=== PATIENT | female | born 1955 | race Caucasian/White ===

== ENCOUNTER → 2023-10-29 11:57 | Outpatient (REF) | payer OTHER, SELFPAY ==
[2023-10-29 14:53] LABS: ALT (SGPT) 25 U/L (0-35); AST (SGOT) 39 U/L (14-36); Albumin 4.3 g/dl (3.5-5.0); Alkaline Phosphatase 75 U/L (38-126); Direct Bilirubin 0.4 mg/dl (0.0-0.4); HDL Cholesterol 74 mg/dl; LDL Cholesterol, Calculated 82 mg/dl; Total Bilirubin 0.9 mg/dl (0.2-1.3); Total Cholesterol 178 mg/dl (50-199); Total Protein 7.1 g/dl (6.3-8.2); Triglyceride 114 mg/dl (10-149); Very Low Density Lipoprotein 22 mg/dl (0-30)
[2023-10-30 08:53] LABS: Glycohemoglobin (HgbA1c) 5.8 % (4.0-5.6)
== END ==
LOC: HWLAB 11:57
PROVIDERS: ATTENDING PHYSICIAN Family Medicine
DX: E78.5 Hyperlipidemia, unspecified (principal); I25.2 Old myocardial infarction; I25.10 Atherosclerotic heart disease of native coronary artery without angina pectoris; R73.01 Impaired fasting glucose
CPT/HCPCS: 36415; 80061; 80076; 83036

== ENCOUNTER → 2023-11-16 08:48 | Outpatient (REF) | payer OTHER, SELFPAY | LOC: RCS 08:48 | PROVIDERS: ATTENDING PHYSICIAN Internal Medicine Critical Care Medicine; FAMILY PHYSICIAN Family Medicine | DX: R09.02 Hypoxemia (principal) | CPT/HCPCS: 93306 ==

== ENCOUNTER → 2023-12-09 10:53 | Outpatient (REF) | payer OTHER, SELFPAY | LOC: HWRAD 10:53 | PROVIDERS: ATTENDING PHYSICIAN Family Medicine | DX: E04.1 Nontoxic single thyroid nodule (principal) | CPT/HCPCS: 76536 ==

== ENCOUNTER → 2024-01-03 13:06 | Outpatient (REF) | payer OTHER, SELFPAY | LOC: HWWDC 13:06 | PROVIDERS: ATTENDING PHYSICIAN Family Medicine | DX: Z12.31 Encounter for screening mammogram for malignant neoplasm of breast (principal) | CPT/HCPCS: 77063; 77067 ==

== ENCOUNTER → 2024-01-09 10:46 | Outpatient (REF) | payer OTHER, SELFPAY | LOC: RAD 10:46 | PROVIDERS: ATTENDING PHYSICIAN Family Medicine; REFERRING PHYSICIAN Internal Medicine Interventional Cardiology | DX: I65.23 Occlusion and stenosis of bilateral carotid arteries (principal); R93.6 Abnormal findings on diagnostic imaging of limbs | CPT/HCPCS: 93880; 93922 ==

== ENCOUNTER → 2024-01-21 13:22 | Outpatient (REF) | payer OTHER, SELFPAY | LOC: HWRAD 13:22 | PROVIDERS: ATTENDING PHYSICIAN Internal Medicine Critical Care Medicine; FAMILY PHYSICIAN Family Medicine | DX: R04.2 Hemoptysis (principal); J98.4 Other disorders of lung | CPT/HCPCS: 71250 ==

== ENCOUNTER 2024-05-06 23:25 | Observation (INO) | payer OTHER, SELFPAY ==
[2024-05-06] VITALS (10 sets, daily range): BP systolic 119–168; BP diastolic 73–108; BMI 19.4; BMI 19.1
--- NOTE | 2024-05-06 14:33 | ED.GENMED ---
ED Provider Triage
<Brina Rasmussen PA-C - Last Filed: 05/06/24 20:33>
-
Patient seen by provider in Triage?: Seen in Triage
Attestation: A medical screening examination has been initiated by a qualified medical provider. Based on the assessment performed at this time, it has been determined that an emergent medical condition may exist and the patient has been informed
that further medical evaluation and possible additional diagnostic testing may be needed.
HPI: 69yoF here with SOB x 1 month. Also c/o chest tightness and cough. Hx of COPD on 3-4L and CAD s/p PCI. Heart rate up to 170 with ambulation at PCP's office.
GENERAL: Alert , in no apparent distress
EYE: No visual abnormalities.
NECK: Trachea midline
ENT: No visible abnormalities.
LUNGS: No acute respiratory distress
NEUROLOGICAL: Alert and oriented
SKIN: Skin intact. No visible changes.
MUSCULOSKELETAL: Moving extremities normally
PSYCH: Normal and appropriate interaction.
This is a medical evaluation conducted in person to initiate diagnostic evaluation and provide initial therapeutics. Please see further documentation by the treating clinician.
HR 130 in triage. Cardiac labs, magnesium, TSH, D-dimer, EKG, and CXR ordered.
History of Present Illness
<Brina Rasmussen PA-C - Last Filed: 05/06/24 20:33>
General
Chief Complaint: Breathing Problem
Time Seen by Provider: 05/06/24 16:47
<Aracely Ballard DO - Last Filed: 05/08/24 08:14>
History of Present Illness
History of Present Illness:
69-year-old female with history of severe emphysema on 3 to 4 L of O2 at baseline presenting for increasing dyspnea. Patient reports symptoms have been ongoing for the past few weeks. Reports nonproductive cough, denies fever. Denies any swelling
to her legs. Denies any associated chest pain. Denies abdominal pain or GI symptoms. She reports that when she ambulates, heart rate is elevated. Denies any history of blood clots. Denies additional acute medical complaints.
Past History
<Brina Rasmussen PA-C - Last Filed: 05/06/24 20:33>
Past History
ED Past Medical History: CAD, COPD, HTN and Hypercholesterolemia
ED Past Surgical History: Cardiac
Social History
Tobacco: Former smoker
Alcohol: None
Drug: None
Personal:
Living: with family
Phy Exam
<Aracely Ballard DO - Last Filed: 05/08/24 08:14>
Physical Exam
Physical Exam:
General: Well-appearing, no clinical signs of dehydration, nontoxic and in no acute distress
HEENT: protecting airway
Neck: appears supple
CV: Normal heart rate, regular rhythm, no evidence of cyanosis
Resp: No accessory muscle use, no increased work of breathing, lungs clear to auscultation bilaterally
Abd: Soft and non-distended, no tenderness to palpation
Extremities: No deformities, no swelling, no erythema
Neuro: alert, no focal neurologic deficit
: deferred
Rectal: deferred
Psych: Normal affect
Skin: Intact
Scores
<Aracely Ballard DO - Last Filed: 05/08/24 08:14>
Heart Failure Risk
Heart Failure Risk Score: Not Applicable
Course
<Brina Rasmussen PA-C - Last Filed: 05/06/24 20:33>
Orders/Labs/Results
Orders:
Orders
05/06/24 Breakfast
Sodium, 2 Gram
At Your Request: Full Participation
Does patient need a safe tray?: No
05/06/24 14:37
CR Chest - 2 Views Urgent
Comment:
Reason For Exam: SOB
05/06/24 14:38
Electrocardiogram (*1) Urgent
Reason for Study: Shortness of Breath
EKG- Treatment ONCE
05/06/24 14:52
Complete Blood Count/With Diff Urgent
Comprehensive Metabolic Panel Urgent
D-Dimer Urgent
Free T4 Urgent
Magnesium Urgent
PTT Urgent
Prothrombin Time Urgent
TSH Reflex To Free T4 Urgent
Troponin I Urgent
05/06/24 16:49
CT Chest Pe Study Urgent
Comment:
Reason For Exam: SOB, positive dimer
05/06/24 22:29
Admit/Transfer Patient As Directed
Co-Sign Provider:
Level of Care: Observation services
Assign to:: Telemetry
Physician / Group: Morgan
Diagnosis: Tachycardia
Reason for Telemetry: Arrhythmia
Date to Stop Telemetry: 05/09/24
Time to Stop Telemetry: 11:00
05/06/24 22:30
PRN Pain Medication Management As Directed
May give lesser potent ordered pain med per pt: Yes
preference::
Protocol:: Medication orders for pain may be administered in a
manner that supports deferring to patient preference
when the pt is:
- Requesting an ordered lesser potent pain medication.
Least to most potent pain medications are defined
as: acetaminophen < NSAID < tramadol < opioids
(morphine, oxycodone, hydromorphone).
- Requesting a lesser dose of the same medication IF
ORDERED.
- Requesting a less intrusive route of administration
if both routes are prescribed by the provider (PO <
IV).
05/06/24 22:33
Code Status As Directed
Resuscitation Status: Full Code
05/06/24 23:00
Flush (0.9% Sodium Chloride) [Flush (Nss)] See Dose Instructions IV PER PROTOCOL
05/06/24 23:58
Acetaminophen [Tylenol] 650 mg PO Q4HPRN PRN
Levalbuterol [Xopenex 1.25 mg Inhalant Solution] 1.25 mg INH R Q6HPRN PRN
05/06/24 23:58
CARDIOLOGY CONSULT Routine
Consulting Provider: Casandra Meier
Was physician already notified: No
Reason for consult: Exertional Tachycardia, Dyspnea on Exertion
Consult Notification Routine
Specialty to Notify: Cardiology
Date consulting provider notified: 05/07/24
Time consulting provider notified: 10:47
Notified:: Provider
Consult Notification Routine
Specialty to Notify: Pulmonary
Date consulting provider notified: 05/07/24
Time consulting provider notified: 10:48
Notified:: Provider
PULMONARY CONSULT Routine
Consulting Provider: Homer Gonzalez
Was physician already notified: No
Reason for consult: Exertional Tachycardia, Dyspnea on Exertion
Activity As Directed
Activity Level: Out of Bed- Chair
I&O [Intake/ Output] As Directed
Frequency: q12h
Vital Signs As Directed
Frequency: Per unit guidelines
Weight As Directed
Frequency: Daily
Xopenex Reason for Use As Directed
Reason for ordering Xopenex instead of Albuterol: tachycardia
Oxygen Therapy [O2 Therapy] [RESP] Routine
Titrate/Wean O2 to maintain O2 sat greater than (%): 92
Pulse Ox/cont/shift [RESP] Routine
Quantity: 1
Pulse Ox/exercise [RESP] Routine
Quantity: 1
Ot Eval And Treat Routine
Pt Eval And Treat Routine
Activity Level: Out of Bed-Early Mobility
With Assistance
DX Deep Vein Thrombosis Video Routine
05/07/24 08:00
Budesonide [Pulmicort] 0.5 mg INH R BID
Calcium Carbonate [Oscal Arpit 500] 500 mg PO BID
Ezetimibe [Zetia] 10 mg PO DAILY
Metoprolol Xl [Toprol Xl] 12.5 mg PO DAILY
Montelukast Sodium [Singulair] 10 mg PO DAILY
Roflumilast [Daliresp] 500 mcg PO DAILY
Tiotropium [place] 2.5 Mcg [Spiriva Respimat 2.5 Mcg] 2 puff INH R DAILY
05/07/24 18:00
Enoxaparin Sodium [Lovenox] 30 mg SC QPM
05/07/24 22:00
Aspirin Low Dose EC [Aspir Low (Enteric Coated)] 81 mg PO HS
Atorvastatin [Lipitor] 40 mg PO HS
Clopidogrel Bisulfate [Plavix] 75 mg PO HS
Lactobac/Bifidobac [Visbiome] 1 cap PO HS
doxepin See Dose Instructions PO HS
05/09/24 11:00
DC Protocol for Telemetry ONCE
Abnormal Lab Results
05/06/24
14:52
Absolute Neuts (auto) 7.9 H 10^3/uL
(1.4-6.5)
Absolute Monos (auto) 0.7 H 10^3/uL
(0.1-0.6)
Neutrophils % 76.7 H %
(42.2-75.2)
Lymphocytes % 13.7 L %
(20.5-51.1)
D-Dimer 0.61 H ug/mlFEU
(0.00-0.50)
Glucose 133 H mg/dl
(70-99)
TSH (Reflex) < 0.02 L uIU/ml
(0.47-4.68)
05/06/24 14:52
05/06/24 14:52
Vital Signs
Initial and Last Documented VS:
Initial Vital Signs
Temp Pulse Resp BP Pulse Ox
98.6 F 131 22 148/108 98
05/06/24 14:29 05/06/24 14:29 05/06/24 14:29 05/06/24 14:29 05/06/24 14:29
Last Documented Vital Signs
Temp Pulse Resp BP Pulse Ox
97.9 F 73 20 135/74 100
05/08/24 08:05 05/08/24 08:05 05/08/24 08:05 05/08/24 08:05 05/08/24 08:05
<Aracely Ballard, - Last Filed: 05/08/24 08:14>
Orders/Labs/Results
Orders:
Orders
05/06/24 Breakfast
Sodium, 2 Gram
At Your Request: Full Participation
Does patient need a safe tray?: No
05/06/24 14:37
CR Chest - 2 Views Urgent
Comment:
Reason For Exam: SOB
05/06/24 14:38
Electrocardiogram (*1) Urgent
Reason for Study: Shortness of Breath
EKG- Treatment ONCE
05/06/24 14:52
Complete Blood Count/With Diff Urgent
Comprehensive Metabolic Panel Urgent
D-Dimer Urgent
Free T4 Urgent
Magnesium Urgent
PTT Urgent
Prothrombin Time Urgent
TSH Reflex To Free T4 Urgent
Troponin I Urgent
05/06/24 16:49
CT Chest Pe Study Urgent
Comment:
Reason For Exam: SOB, positive dimer
05/06/24 22:29
Admit/Transfer Patient As Directed
Co-Sign Provider:
Level of Care: Observation services
Assign to:: Telemetry
Physician / Group: Morgan
Diagnosis: Tachycardia
Reason for Telemetry: Arrhythmia
Date to Stop Telemetry: 05/09/24
Time to Stop Telemetry: 11:00
05/06/24 22:30
PRN Pain Medication Management As Directed
May give lesser potent ordered pain med per pt: Yes
preference::
Protocol:: Medication orders for pain may be administered in a
manner that supports deferring to patient preference
when the pt is:
- Requesting an ordered lesser potent pain medication.
Least to most potent pain medications are defined
as: acetaminophen < NSAID < tramadol < opioids
(morphine, oxycodone, hydromorphone).
- Requesting a lesser dose of the same medication IF
ORDERED.
- Requesting a less intrusive route of administration
if both routes are prescribed by the provider (PO <
IV).
05/06/24 22:33
Code Status As Directed
Resuscitation Status: Full Code
05/06/24 23:00
Flush (0.9% Sodium Chloride) [Flush (Nss)] See Dose Instructions IV PER PROTOCOL
05/06/24 23:58
Acetaminophen [Tylenol] 650 mg PO Q4HPRN PRN
Levalbuterol [Xopenex 1.25 mg Inhalant Solution] 1.25 mg INH R Q6HPRN PRN
05/06/24 23:58
CARDIOLOGY CONSULT Routine
Consulting Provider: Casandra Meier
Was physician already notified: No
Reason for consult: Exertional Tachycardia, Dyspnea on Exertion
Consult Notification Routine
Specialty to Notify: Cardiology
Date consulting provider notified: 05/07/24
Time consulting provider notified: 10:47
Notified:: Provider
Consult Notification Routine
Specialty to Notify: Pulmonary
Date consulting provider notified: 05/07/24
Time consulting provider notified: 10:48
Notified:: Provider
PULMONARY CONSULT Routine
Consulting Provider: Homer Gonzalez
Was physician already notified: No
Reason for consult: Exertional Tachycardia, Dyspnea on Exertion
Activity As Directed
Activity Level: Out of Bed- Chair
I&O [Intake/ Output] As Directed
Frequency: q12h
Vital Signs As Directed
Frequency: Per unit guidelines
Weight As Directed
Frequency: Daily
Xopenex Reason for Use As Directed
Reason for ordering Xopenex instead of Albuterol: tachycardia
Oxygen Therapy [O2 Therapy] [RESP] Routine
Titrate/Wean O2 to maintain O2 sat greater than (%): 92
Pulse Ox/cont/shift [RESP] Routine
Quantity: 1
Pulse Ox/exercise [RESP] Routine
Quantity: 1
Ot Eval And Treat Routine
Pt Eval And Treat Routine
Activity Level: Out of Bed-Early Mobility
With Assistance
DX Deep Vein Thrombosis Video Routine
05/07/24 08:00
Budesonide [Pulmicort] 0.5 mg INH R BID
Calcium Carbonate [Oscal Arpit 500] 500 mg PO BID
Ezetimibe [Zetia] 10 mg PO DAILY
Metoprolol Xl [Toprol Xl] 12.5 mg PO DAILY
Montelukast Sodium [Singulair] 10 mg PO DAILY
Roflumilast [Daliresp] 500 mcg PO DAILY
Tiotropium [place] 2.5 Mcg [Spiriva Respimat 2.5 Mcg] 2 puff INH R DAILY
05/07/24 18:00
Enoxaparin Sodium [Lovenox] 30 mg SC QPM
05/07/24 22:00
Aspirin Low Dose EC [Aspir Low (Enteric Coated)] 81 mg PO HS
Atorvastatin [Lipitor] 40 mg PO HS
Clopidogrel Bisulfate [Plavix] 75 mg PO HS
Lactobac/Bifidobac [Visbiome] 1 cap PO HS
doxepin See Dose Instructions PO HS
05/09/24 11:00
DC Protocol for Telemetry ONCE
Abnormal Lab Results
05/06/24
14:52
Absolute Neuts (auto) 7.9 H 10^3/uL
(1.4-6.5)
Absolute Monos (auto) 0.7 H 10^3/uL
(0.1-0.6)
Neutrophils % 76.7 H %
(42.2-75.2)
Lymphocytes % 13.7 L %
(20.5-51.1)
D-Dimer 0.61 H ug/mlFEU
(0.00-0.50)
Glucose 133 H mg/dl
(70-99)
TSH (Reflex) < 0.02 L uIU/ml
(0.47-4.68)
05/06/24 14:52
05/06/24 14:52
Vital Signs
Initial and Last Documented VS:
Initial Vital Signs
Temp Pulse Resp BP Pulse Ox
98.6 F 131 22 148/108 98
05/06/24 14:29 05/06/24 14:29 05/06/24 14:29 05/06/24 14:29 05/06/24 14:29
Last Documented Vital Signs
Temp Pulse Resp BP Pulse Ox
97.9 F 73 20 135/74 100
05/08/24 08:05 05/08/24 08:05 05/08/24 08:05 05/08/24 08:05 05/08/24 08:05
<Aracely aBllard, DO - Last Filed: 05/08/24 08:14>
MDM/Problems Addressed
MDM/Problems Addressed:
69-year-old female with history of severe emphysema presenting for increased shortness of breath and concern for elevated heart rate on ambulation. Vital signs on arrival significant for mild tachycardia.
On exam patient is well-appearing, resting comfortably, no increased work of breathing. Lungs clear to auscultation, no focal abnormal lung sounds, no wheezing with lower suspicion for COPD exacerbation or infectious component such as pneumonia.
No crackles, no rales, no lower extremity edema with lower suspicion for CHF.. Patient without chest pain, EKG obtained, nonischemic with lower suspicion for ACS. Patient had screening laboratory analysis completed prior to my assessment,
relatively unremarkable with the exception of elevated dimer. PE is a consideration. For this reason we will obtain CT chest for rule out
21:15 - CT without PE, however patient ambulated and heart rate went up to the 140s and patient became very dyspneic. She notes that she has been this way essentially for the past month, however worsened in the past few days, difficulty getting
around her house. Given this dyspnea on exertion and tachycardia with exertion, feel patient warrants admission for cardiac evaluation and possible stress testing.
<Aracely Ballard DO - Last Filed: 05/08/24 08:14>
*EKG
Interpreted by ED Provider?: Yes
EKG Intrepretation Date: 05/06/24
EKG Intrepretation Time: 17:23
Interpretation: normal
Comparison EKG: no changes (02/26/23)
Heart Rate: 114
Rate: tachycardiac
Rhythm: sinus
[place]: normal axis
Interval: normal interval
QRS Pattern: normal QRS
Ischemia: no ischemia
*Critical Care Note
Total Time (30-74mins, 75-104mins- exclusive of procedures): Not Applicable
ED Attending Note
<Brina Rasmussen PA-C - Last Filed: 05/06/24 20:33>
-
Portions of this chart may have been created with voice recognition software.� Occasional wrong word or��sound alike� substitutions may have occurred due to the inherent limitations of voice recognition software.
Discharge Plan
Departure
Patient Disposition: Admit
Date of Disposition: 05/06/24
Time of Disposition: 22:00
Presentation/result/management discussed w/ accepting MD/DO: Hospitalist
Patient with high blood pressure during this ER visit?: No
Condition: Fair
Discharge Problem:
HEBERT (dyspnea on exertion), Tachycardia
Interventions
Interventions:
*Risk Screen - Suicide Last Done: 05/07/24 00:04
*General Assessment Last Done: 05/06/24 14:29
*Neglect/Abuse Screening Last Done: 05/06/24 14:34
ED- Fall Risk Assessment Last Done: 05/06/24 16:49
*ED COVID-19 Vaccine History Last Done: 05/06/24 14:29
*Nursing Disposition Last Done: 05/06/24 23:31
ED- Cardiac Assessment Last Done: 05/06/24 16:49
ED- Pulmonary Assessment Last Done: 05/06/24 16:49
Discharge Date and Time
Discharge Date/Time: 05/06/24 23:31
[2024-05-06 15:01] LABS: % Eosinophils 1.4 % (0-6); % Immature Granulocytes 0.3 % (0-0.5); % Lymphocytes 13.7 % (20.5-51.1); % Monocytes 6.9 % (1.7-9.3); % Neutrophils 76.7 % (42.2-75.2); Absolute Basophils 0.1 10^3/uL (0-0.2); Absolute Eosinophils 0.1 10^3/uL (0-0.7); Absolute Lymphocytes 1.4 10^3/uL (1.2-3.4); Absolute Monocytes 0.7 10^3/uL (0.1-0.6); Absolute Neutrophils 7.9 10^3/uL (1.4-6.5); Hematocrit 40.4 % (37.0-47.0); Hemoglobin 13.6 g/dL (12.0-16.0); Mean Corp Hgb Conc. 33.7 g/dL (33.0-37.0); Mean Corpuscular Hgb 30.1 pg (27.0-31.0); Mean Corpuscular Volume 89.4 fL (81.0-99.0); Mean Platelet Volume 9.6 fL (7.4-10.4); Nucleated Red Blood Cells % 0 %; Platelet Count 329 10^3/uL (130-400); Red Blood Cell Count 4.52 10^6/uL (4.20-5.40); Red Cell Dist. Width 12.4 % (11.5-14.5); White Blood Cell Count 10.3 10^3/uL (4.8-10.8)
[2024-05-06 15:18] LABS: ALT (SGPT) 26 U/L (0-35); AST (SGOT) 32 U/L (14-36); Albumin 4.5 g/dl (3.5-5.0); Alkaline Phosphatase 70 U/L (38-126); Blood Urea Nitrogen 14 mg/dl (7-17); Carbon Dioxide 28 mmol/L (22-30); Chloride 98 mmol/L (98-107); Glucose 133 mg/dl (70-99); Potassium 4.1 mmol/L (3.5-5.1); Sodium 135 mmol/L (135-145); Total Bilirubin 0.3 mg/dl (0.2-1.3); eGFR > 60.00
[2024-05-06 15:28] LABS: Troponin I < 0.012 ng/ml
[2024-05-06 15:30] LABS: PT 12.7 Sec (11.4-14.6)
[2024-05-06 15:53] LABS: TSH Reflex To Free T4 < 0.02 uIU/ml (0.47-4.68)
[2024-05-06 16:03] LABS: D-Dimer 0.61 ug/mlFEU (0.00-0.50)
[2024-05-06 16:23] LABS: Free T4 1.09 ng/dl (0.78-2.19)
--- NOTE | 2024-05-06 21:05 | EDRN ---
Pt. ambulated around nursing station w/ ECT on 3LNC, Pulse ox. maintained above 94%; however, pt. w/ pursed lip, labored breathing w/ ambulation, and her HR increased to 140 w/ ambulation.
--- NOTE | 2024-05-06 22:29 | HPS.HSE ---
Addendum entered and electronically signed by Jaylon Mora DO 05/06/24 23:49:
Patient seen and examined independently. Agree with findings and plan as set forth by Gracie Claros PA-C.
Patient is a 69y F with PMH significant for COPD, chronic hypoxemic respiratory failure and ASCVD who presents to ED complaining of HEBERT and rapid heart rate with activity. Patient typically wears 3 lpm of O2 at rest and increases this to 4 lpm
with activity. For the past several weeks she has noted worsening shortness of breath with exertion. She has been monitoring her SpO2 - which she notes decreases in the low 90s / high 80s with activity. She has incidentally noted on SpO2
monitoring that her pulse has also increased with activity - going as high as 170 bpm at home. She has no symptoms at rest. No cough, fevers / chills, chest pain, palpitations, etc.
Ass:
Exertional Dyspnea
Exertional Tachycardia
COPD
Chronic Hypoxemic Respiratory Failure
COPD without Acute Exacerbation
ASCVD
Ischemic Cardiomyopathy
Benign Hypertension
Plan:
Observe overnight for further evaluation and treatment.
Patient with significant tachyarrhythmia with any activity / exertion / etc.
Evaluation in the ED including CTA chest, EKG, labs, etc has been unremarkable.
Monitor on tele overnight.
Echo done in October with LVEF 45-50%, multiple areas of hypokinesis and trivial pericardial effusion.
Cardiology and Pulmonary evaluations for additional recommendations.
Titrate O2 as needed.
Continue usual home med regimen.
Original Note:
Family Physician
-
Family Physician: Keily Naidu
Chief Complaint
-
Exertional Tachycardia and Dyspnea on Exertion
History of Present Illness
Patient is a 69 y/o female past medical history of chronic hypoxia, COPD, CAD, and ICM who presents with elevated heart rate and dyspnea on exertion. Patient reports over the last six weeks she has been having increasing dyspnea on exertion. She
notes on her home pulse ox her oxygen level drop to the low 90s, sometimes the upper 80s, and her heart rate becomes significantly elevated as high as 170s. She report she is on 3L oxygen at rest, but increases it to 4L with activity. She denies
chest pain, or lower extremity edema.
Medical History
Past Medical History
Past Medical History: Reports Other
Additional Past Medical History:
Chronic Hypoxic Respiratory Failure
COPD
Coronary Artery Disease s/p Stent
Ischemic Cardiomyopathy
Essential Hypertension
Hyperlipidemia
Osteoporosis
Past Surgical History: Reports None
Additional Past Surgical History:
Cardiac Stent
Tubal Ligation
Social History
Tobacco: Former Smoker (Quit in 2015)
Family History
Family History: Not pertinent
Allergies / Home Medications
Allergies reflects when Allergies were last updated in [facility].
Home Medications with original date entered in [facility]
Allergy/Medication List:
Weight-Last 4 Days
05/04/24 05/05/24 05/06/24 05/07/24
06:59 06:59 06:59 06:59
Actual Weight 120 lb 5.958 oz
Review of Systems
-
A 12 point ROS was completed and negative except as noted: Yes
Constitutional: Denies Fever or Chills
Respiratory: Reports Trouble Breathing; Denies Cough
Cardiac: Denies Chest Pain or Palpitations
Neurological: Denies Dizzy
Physical Exam
Vital Signs
Vital Signs
Temp Pulse Resp BP Pulse Ox
98.6 F 102 22 153/85 99
05/06/24 14:29 05/06/24 21:00 05/06/24 14:29 05/06/24 20:00 05/06/24 21:00
Physical Exam
General: Comfortable and Conversant
HEENT: Anicteric, Moist mucous membranes and Oxygen (Nasal Cannula)
Respiratory: Non Labored Respirations and Decreased Breath Sounds
Cardiac: S1/S2, Regular Rhythm and Other (Heart rate consistently in the upper 80s to low 90s during my evaluation while patient was at rest on stretcher); No Tachycardia
GI: Soft and Non Tender
Musculoskeletal: No Clubbing, No Cyanosis and No Edema
Skin: Warm and Dry
Neuro: Awake, Alert, Oriented and Nonfocal/grossly intact
Psych: Calm
Laboratory Results
-
05/06/24 14:52
05/06/24 14:52
Laboratory Results
PT 12.7 Sec (11.4-14.6) 05/06/24 14:52
INR 0.90 05/06/24 14:52
APTT 30.0 Sec (23.4-35.0) 05/06/24 14:52
Total Bilirubin 0.3 mg/dl (0.2-1.3) 05/06/24 14:52
AST 32 U/L (14-36) 05/06/24 14:52
ALT 26 U/L (0-35) 05/06/24 14:52
Alkaline Phosphatase 70 U/L (38-126) 05/06/24 14:52
Troponin I < 0.012 ng/ml 05/06/24 14:52
Data Reviewed
-
Lab Data: Labs Reviewed by me
Impression/Plan
-
Exertional Tachycardia / Dyspnea on Exertion
-Consult Pulmonary and Cardiology
-Check ambulatory pulse ox - Consider up-titrating oxygen with activity
-Defer further work-up to consultants
Chronic Hypoxic Respiratory Failure
-Continue supplemental oxygen via nasal cannula
COPD, no acute exacerbation
-Continue Anoro Ellipta, budesonide and levalbuterol
-Continue montelukast
-Patient maintained on roflumilast as outpatient
Coronary Artery Disease s/p Stent
-Continue aspirin and Plavix
Ischemic Cardiomyopathy
-Echo October 2023: Normal left ventricular size and wall thickness. Mildly reduced to low normal left ventricular systolic function. Apical hypokinesis, basal hypokinesis. LV ejection fraction is 45-50%.
-Monitor Is&Os and Daily Weights
Essential Hypertension
-Continue metoprolol
Hyperlipidemia
-Continue atorvastatin and Zetia
DVT proph: Lovenox
Code Status: Full Code
[2024-05-07] VITALS (8 sets, daily range): BP systolic 126–154; BP diastolic 74–98; PULSE 86–100; O2SAT 97–98; BMI 18.4
[2024-05-07] MEDS: LOW STRENGTH ASPIRIN 81 MG PO (00:27)
[2024-05-07] MEDS: PLAVIX 75 MG PO ×2 (00:27→21:59)
[2024-05-07] MEDS: LIPITOR 40 MG PO ×2 (00:27→21:59)
--- NOTE | 2024-05-07 00:34 | PTCARENOTE ---
Pt received from ER [id number] able to make her needs know.Denies pain. Pt on oxygen at 4litres. Pt oriented to room & maya salgado in reach.Plan of care continued.
[2024-05-07] MEDS: SPIRIVA RESPIMAT 2.5 MCG 2 PUFF INH (08:09)
[2024-05-07] MEDS: STRIVERDI RESPIMAT 2 PUFF INH (08:09)
[2024-05-07] MEDS: PULMICORT 0.5 MG INH ×2 (08:09→19:23)
[2024-05-07] MEDS: OSCAL CAL 500 500 MG PO ×2 (08:43→21:59)
[2024-05-07] MEDS: SINGULAIR 10 MG PO (08:44)
[2024-05-07] MEDS: ZETIA 10 MG PO (08:44)
[2024-05-07] MEDS: DALIRESP 500 MCG PO (08:44)
[2024-05-07] MEDS: TOPROL XL 12.5 MG PO (08:44)
--- NOTE | 2024-05-07 10:23 | CON.PUL ---
Consultation
Consultation Request
Date/Time Consultation Requested: 05/07/2024-8 AM
Date/Time Consultation Performed: 05/07/2024-8:30 AM
Requesting Provider: Hospitalist
Performing Provider: Dr. Underwood
Reason for Consultation: COPD exacerbation
Medical History
-
Chief Complaint: Shortness of breath
History of Present Illness:
69-year-old female patient who is a former smoker with underlying oxygen dependent COPD followed by Dr. Green as well as CAD, ischemic cardiomyopathy and hypertension presented with increasing shortness of breath, rapid heart rate and some chest
tightness-pulmonary consulted for shortness of breath/COPD 05/07/2024. Patient feels somewhat improved overnight on oxygen and other therapies. Patient states that over the last several weeks she has had progressive shortness of breath. She was
not sure whether it was the heart or the lungs. She did have increased dyspnea on exertion and some mild chest tightness but no chest congestion, fevers, chills, productive cough, hemoptysis, abdominal pain, reflux or increased lower extremity
swelling.
Past Medical History
Past Medical History: None (COPD-oxygen dependent. CAD/stent. Ischemic cardiomyopathy. Hypertension. Hyperlipidemia. Osteoporosis. Tubal ligation.)
Social History
Tobacco: Former Smoker ([id number] quit November 25, 2015)
Living: With Family
Occupational Exposures: No known asbestos exposure
Environmental Exposures: No known tuberculosis exposure
Family History
Family History: Reviewed & Not Pertinent and Other (Father-COPD and lung cancer-smoker. Mother-osteoporosis, hypertension and CVA.)
Allergies / Home Medications
Allergies
Allergy/AdvReac Type Severity Reaction Status Date / Time
No Known Allergies Allergy Verified 05/06/24 14:33
Home Medications
�Medication �Instructions �Recorded �Confirmed �Last Taken �Type
calcium carbonate 600 mg PO BID Supplement 04/25/17 05/06/24 05/06/24 History
clopidogrel 75 mg tablet 75 mg PO HS Blood clot 04/25/17 05/06/24 05/05/24 History
prevention/tx
aspirin 81 mg tablet,delayed 81 mg PO HS Blood clot 10/12/20 05/06/24 05/05/24 History
release prevention/tx
atorvastatin 40 mg tablet 40 mg PO HS High cholesterol 10/12/20 05/06/24 05/05/24 History
metoprolol succinate 25 mg 12.5 mg PO DAILY Blood pressure 10/12/20 05/06/24 05/06/24 History
tablet,extended release 24 hr
montelukast 10 mg tablet 10 mg PO DAILY Lung/breathing 10/12/20 05/06/24 05/06/24 History
issues
ezetimibe 10 mg tablet 10 mg PO DAILY High cholesterol 06/22/22 05/06/24 05/06/24 History
levalbuterol tartrate 45 2 puff inhalation R Q4HPRN PRN 06/22/22 05/06/24 Unknown History
mcg/actuation aerosol inhaler sob/wheezing
Lactobac no.2-Bifidobac no.1-S. 1 cap PO HS 05/06/24 05/06/24 05/05/24 History
thermo 112.5 billion cell capsule
(Visbiome)
budesonide 0.5 mg/2 mL suspension 0.5 mg inhalation R BID 05/06/24 05/06/24 05/06/24 History
for nebulization
doxepin 3 mg tablet 3 mg PO HS 05/06/24 05/06/24 05/05/24 History
ibandronate 150 mg tablet 150 mg PO QMONTH 05/06/24 05/06/24 04/18/24 History
roflumilast 500 mcg tablet 500 mcg PO DAILY 05/06/24 05/06/24 05/06/24 History
therapeutic multivitamin 1 tab PO HS 05/06/24 05/06/24 05/05/24 History
umeclidinium 62.5 mcg-vilanterol 1 inh inhalation R DAILY@1200 05/06/24 05/06/24 05/05/24 History
25 mcg/actuation powdr for
inhalation (Anoro Ellipta)
Review of Systems
-
Unable to Obtain full review of systems at this time due to: Other (Per HPI)
Vitals / Labs / Diagnostic Testing
Vital Signs
Temp Pulse Resp BP Pulse Ox
97.6 F 101 16 154/82 100
05/07/24 07:57 05/07/24 08:44 05/07/24 08:18 05/07/24 08:44 05/07/24 08:18
Lab Data
05/06/24 14:52
05/06/24 14:52
Laboratory Results
05/06/24
14:52
PT 12.7
INR 0.90
APTT 30.0
Diagnostic Testing:
Physical Exam
-
Exam:
Well-nourished and well-developed in no apparent distress
HEENT-atraumatic, normocephalic, mild temporal wasting
Neck-supple, no JVD, no bruit
Heart-regular rate and rhythm-no murmurs, rubs or gallops
Chest with diminished breath sounds, prolonged expiratory time, mild barrel chested, forced mid to end expiratory wheezes and no crackles
Back without tenderness
Abdomen-soft, nontender, nondistended, no hepatosplenomegaly
Extremities-no cyanosis, clubbing, edema and good peripheral pulses
Integument-intact, no rashes, lesions or ecchymosis
Neurology-alert and oriented, nonfocal motor and sensory exam
Assessment
-
69-year-old female patient who is a former smoker with underlying oxygen dependent COPD followed by Dr. Green as well as CAD, ischemic cardiomyopathy and hypertension presented with increasing shortness of breath, rapid heart rate and some chest
tightness-pulmonary consulted for shortness of breath/COPD 05/07/2024.
COPD-Gold stage IV with acute exacerbation
Exertional tachycardia/dyspnea
Elevated D-dimer
Mild hyperglycemia
Conditions present prior to admission:
PSUX-tfp-hlgsn-oxygen dependent-followed by Dr. Green maintained on budesonide nebulizers, Anoro, and oxygen 2-3 L at rest, 4 L with exertion
Severe diffusing deficit-DLCO 17%
Eosinophilia
Pulmonary nodule
History of hemoptysis
Pulmonary hypertension
Psoriasis
CAD/stent.
Ischemic cardiomyopathy.
Hypertension.
Hyperlipidemia.
Osteoporosis.
Tubal ligation.
Plan
Respiratory decompensation likely a combination of advancing severe end-stage lung disease with possible mild exacerbation in addition to underlying ischemic cardiomyopathy
Supplement oxygen as needed
Patient has home oxygen-2 to 3 L at rest and 4 L with exertion-might require increased
Budesonide nebulizers continue
Spiriva continues
Albuterol as needed
Singulair and Daliresp continue
Cardiology evaluation
Monitor tachycardia
If patient euvolemic then a trial of steroids may be in order
Monitor blood sugar
Insulin supplementation as needed
DVT prophylaxis-on Lovenox
Nutrition
Early mobilization
Patient was last seen by Dr. Green 03/03/2024 and has an appointment 05/29/2024 at 2:30 PM
The patient was on Trelegy or Breztri, however, it was not covered and now she is on Anoro and budesonide nebulizers, macrolides were also held
Conversations with and pulmonary-Dr. Levon Wiseman as well as lung transplant correspondence-Dr. Son
Diagnostic data:
Chest x-ray 05/06/2024-stable hyperinflated COPD changes but no acute pulmonary process
CT chest 05/06/2024-no filling defects to indicate pulmonary embolism, severe emphysematous lung changes, no suspicious pulmonary masses, no evidence for pneumonia
CT chest 01/21/24: 3 mm left upper lobe nodule, severe emphysema.� Dense coronary calcifications.� There is stable thickening in the right major fissure.� Scarring in the left lower lobe
CXR 03/29/23: no acute findings
CT chest 01/22/23: severe emphysema. thickening along the right fissure noted, stable. Prior opacity has resolved. Mild interstitial changes. left lower lobe groundglass abnormality 11 mm, decreased to [address] chest 10/08/22: new 1.3 cm nodule right lower lobe image #44,patchy mild infiltrate per my review right lower lobe superior segment left upper lobe image #36. Nodular thickening along the fissure right upper lobe image #20. Nodular
PFT 05/29/23 ([place]):FVC 2.22/77%, FEV1 0.82/36%, ratio 37. DLCO 17%, TLC 126%, RV 208%.
[place] 01/31/23: FVC 1.84/54%, FEV1 0.79/30%, ratio 43. FVC has worsened when compared to prior study
[place] 09/11/22: FVC 2.25/66%, FEV1 0.93/36%, ratio 42. FVC has improved, FEV1 stable
PFT 05/15/22: FVC 3.16/95%, FEV1 1.04/41%, ratio 34. TLC 5.37/103%, DLCO 3.24/14%. When compared to one year ago, this is stable
6MWT 10/23/23: ambulated 3 minutes on room air, 88%, dyspnea scale 5/10, heart rate 128.� Required 1 L, walked additional 2 minutes, saturation 91%, heart rate 128, dyspnea scale 6/10, at the stop because of shortness of breath
Echo 11/16/23:EF 45%, normal RV size and function, mild aortic stenosis, trivial pericardial effusion.� Stable
Echo 05/15/23: EF 40%, normal RV size and function, PA pressure 39. Mild 1.59 cm
Echo 11/14/21: EF 45%, normal RV size and function, mild pulmonary hypertension PASP 40. Stable
Echo 10/10/20: EF 45%, nl RVF, PASP 43
Data Reviewed
-
PFT: Report reviewed by me
EKG: Report reviewed by me
Radiology: Image personally visualized and interpreted and Report reviewed by me
CT Scan: Image personally visualized and interpreted and Report reviewed by me
Medical Tests (Nuc Med, Echo etc): Report reviewed by me
Labs: Labs reviewed by me
Old Records: Reviewed
Total Time Spent with Patient (in minutes): 65
--- NOTE | 2024-05-07 10:27 | W.PN.HOSP.TC ---
Today's Communication/Plan
-
see outlined plan, will follow BNP and Echo results
Assessment / Plan
Assessment / Plan
Assessment:
Exertional Tachycardia/Dyspnea on Exertion
- multifactorial from deconditioning, COPD, hx of CAD
- TSH low, FT4 normal
- check Echo, BNP
- CT-PE negative, CXR negative for acute pathology. Shows stable pattern of advanced COPD.
- no sign of bleeding, Hb stable
- follow Cards/Pulm recs
Chronic Hypoxic Respiratory Failure
- Continue supplemental oxygen via nasal cannula
- after workup/diagnostics, will walk and consider up-titrating home O2 usage
COPD, no acute exacerbation
- Continue Anoro Ellipta, budesonide and levalbuterol
- Continue montelukast
- Patient maintained on roflumilast as outpatient
Coronary Artery Disease s/p Stent
- Continue aspirin and Plavix, statin
Ischemic Cardiomyopathy
- Echo October 2023: Normal left ventricular size and wall thickness. Mildly reduced to low normal left ventricular systolic function. Apical hypokinesis, basal hypokinesis. LV ejection fraction is 45-50%.
- Monitor Is&Os and Daily Weights
Essential Hypertension
- Continue metoprolol
Hyperlipidemia
- Continue atorvastatin and Zetia
DVT proph: Lovenox
Code Status: Full Code
Anticipated Discharge: > 48 hours
Subjective/Interval History
-
Date of Service: May 07, 2024
reports SOB, palpitations with exertion
no fever/chills, no bleeding
on 3L resting, 4L exertion at baseline
Objective Data
-
Vital Signs:
Vital Signs
Temp Pulse Resp BP Pulse Ox
97.6 F 101 16 154/82 100
05/07/24 07:57 05/07/24 08:44 05/07/24 08:18 05/07/24 08:44 05/07/24 08:18
I&O
05/06/24 05/07/24 05/08/24
06:59 06:59 06:59
Intake Total 480 / 480
Balance 480 / 480
Physical Exam
-
General: Appears Chronically Ill
HEENT: Normocephalic and Atraumatic
Respiratory: Decreased Breath Sounds; Negative Wheezes
Cardiac: Regular Rhythm, S1/S2 and Tachycardic
GI: Soft
Genito-urinary: No Costovertebral Tender
Musculoskeletal: No Edema
Neuro: AO x 3
Hematologic / Lymphatic: No Lymphadenopathy
Psych: Calm
Data Reviewed
-
Total Time Spent with Patient (in minutes): 44
Labs: Labs Reviewed by me
--- NOTE | 2024-05-07 11:11 | CON.CAR ---
Addendum entered and electronically signed by Brayden Argueta MD 05/07/24 16:22:
I saw and examined the patient.
The [employer]'s note was reviewed and I agree with the note.
Comment:
GEN: No distress, awake, Ox3
HEENT: supple, anicteric, mmm
LUNGS: bilatb wheeze
CV: Reg, S1/S2, 1/6 syst LSB, no gallop
ABD: soft, BS+, NT/ND
EXT: No edema
NEURO: Gross non-focal
SKIN: No rash
Plan:
She has a past medical history of advanced end-stage COPD/emphysema, on chronic home oxygen, coronary status post remote WA/LAD stent with small occluded RCA, ischemic cardiomyopathy with EF of 45 to 50%. She presents with progressive shortness of
breath. She states that over the past several months her baseline dyspnea on home oxygen has slowly worsened. She has noticed some increased heart rate with activity. She denies any chest pains or chest tightness. She denies any orthopnea, PND,
or edema. She has no fevers or chills. She has no bleeding.
Will check echocardiogram. proBNP is normal at 298. Cardiac troponin normal.
EKG with sinus rhythm with nonspecific T wave abnormalities. This is unchanged.
With a normal proBNP I have a low clinical suspicion that this is a cardiac etiology for shortness of breath.
If echocardiogram overall unremarkable with normal pulmonary pressures I would not pursue further cardiac evaluation at this time.
Could consider outpatient Lexiscan nuclear stress test.
Continue medical therapy for coronary disease. Continue aspirin, metoprolol, atorvastatin, Plavix, and Zetia.
Original Note:
Consultation
Consultation Request
Date/Time Consultation Performed: 05/07/24
Requesting Provider: Dr. Fenton
Performing Provider: Jennyfer Barriga PA-C for Dr. Argueta
Reason for Consultation: HEBERT
Medical History
-
Chief Complaint: HEBERT
History of Present Illness:
Patient is a 69-year-old female with past medical history of CAD with remote WA resulting in LAD stent and chronically occluded small dominant RCA, ischemic cardiomyopathy with recovered EF 45 to 50% by most recent echocardiogram, hyperlipidemia,
COPD/emphysema on chronic home O2, pulmonary nodule, former smoker. She has followed by pulmonary, Dr. Green and has reportedly undergone evaluation for lung transplant at [facility] -as of [facility] correspondence 11/12/2023 patient
was deemed appropriate transplant candidate however were evaluating cardiac/rehab potential. She reports over the last month or so she has noted worsening dyspnea on exertion with any activity. Also notes elevated heart rates with activity, but
not palpitations or abnormal heartbeats. She denies chest pain. She denies weight gain, lower extremity edema, abdominal bloating, worsened orthopnea. Cardiology consulted for evaluation
PMH:
CAD with remote WA resulting in LAD PCI, residual chronically occluded small dominant RCA
Ischemic cardiomyopathy with recovered EF 45 to 50% by most recent echocardiogram
Hyperlipidemia
Severe COPD/emphysema on chronic home O2
Pulmonary nodule
Former smoker
Past Medical History
Past Medical History: Other (in HPI)
Social History
Tobacco: Former Smoker
Personal:
Living: With Family
Family History
Family History: Hypertension
Allergies / Home Medications
Allergy/AdvReac Type Severity Reaction Status Date / Time
No Known Allergies Allergy Verified 05/06/24 14:33
�Medication �Instructions �Recorded �Confirmed �Type
calcium carbonate 600 mg PO BID Supplement 04/25/17 05/06/24 History
clopidogrel 75 mg tablet 75 mg PO HS Blood clot 04/25/17 05/06/24 History
prevention/tx
aspirin 81 mg tablet,delayed 81 mg PO HS Blood clot 10/12/20 05/06/24 History
release prevention/tx
atorvastatin 40 mg tablet 40 mg PO HS High cholesterol 10/12/20 05/06/24 History
metoprolol succinate 25 mg 12.5 mg PO DAILY Blood pressure 10/12/20 05/06/24 History
tablet,extended release 24 hr
montelukast 10 mg tablet 10 mg PO DAILY Lung/breathing 10/12/20 05/06/24 History
issues
ezetimibe 10 mg tablet 10 mg PO DAILY High cholesterol 06/22/22 05/06/24 History
levalbuterol tartrate 45 2 puff inhalation R Q4HPRN PRN 06/22/22 05/06/24 History
mcg/actuation aerosol inhaler sob/wheezing
Lactobac no.2-Bifidobac no.1-S. 1 cap PO HS 05/06/24 05/06/24 History
thermo 112.5 billion cell capsule
(Visbiome)
budesonide 0.5 mg/2 mL suspension 0.5 mg inhalation R BID 05/06/24 05/06/24 History
for nebulization
doxepin 3 mg tablet 3 mg PO HS 05/06/24 05/06/24 History
ibandronate 150 mg tablet 150 mg PO QMONTH 05/06/24 05/06/24 History
roflumilast 500 mcg tablet 500 mcg PO DAILY 05/06/24 05/06/24 History
therapeutic multivitamin 1 tab PO HS 05/06/24 05/06/24 History
umeclidinium 62.5 mcg-vilanterol 1 inh inhalation R DAILY@1200 05/06/24 05/06/24 History
25 mcg/actuation powdr for
inhalation (Anoro Ellipta)
Review of Systems
-
History Source: Patient
All other systems: Negative unless noted
Physical Exam
Vital Signs
Temp Pulse Resp BP Pulse Ox
97.6 F 101 16 154/82 100
05/07/24 07:57 05/07/24 08:44 05/07/24 08:18 05/07/24 08:44 05/07/24 08:18
Lab Results
05/06/24 14:52
05/06/24 14:52
Troponin I < 0.012 ng/ml 05/06/24 14:52
Physical Exam
General: No Apparent Distress, Comfortable and Other (on supp O2)
HEENT: Normocephalic, Anicteric and Moist Mucous Membranes
Respiratory: Other (poor air movement)
Cardiac: S1/S2 and Regular Rhythm
GI: Soft, Non Tender, Non Distended and Normal Bowel Sounds
Musculoskeletal: No Clubbing, No Cyanosis and No Edema
Skin: Warm and Dry
Neuro: AO x 3
Impression / Plan
-
Primary Primary Substance Abuse Counselor: Dr. Nieves
Assessment:
HEBERT
Sinus tachycardia
CAD with remote WA resulting in LAD PCI, residual chronically occluded small dominant RCA
Ischemic cardiomyopathy with recovered EF 45 to 50% by most recent echocardiogram
Hyperlipidemia
Severe COPD/emphysema on chronic home O2
Pulmonary nodule
Former smoker
ECHO 11/16/2023: EF 45 to 50%, apical hypokinesis, basal hypokinesis, aortic sclerosis with mild , trivial localized pericardial effusion
ECHO 05/07/2024: Pending
Plan:
-Patient presents with dyspnea on exertion and tachycardia over the last month or so.
-Troponin negative
-Chest x-ray with stable COPD and no acute cardiopulmonary process. Chest CT without evidence of PE or pneumonia
-Ordered proBNP. She does not appear to be volume overloaded on examination
-Last echo from 10/2023 with results as above, will repeat
-She has reported increasing home oxygen requirements. Check ambulatory pulse ox
-EKG sinus tachycardia, no evidence of arrhythmia noted on telemetry overnight. Suspect tachycardia a byproduct of hypoxia
-Pulmonary to evaluate patient
-If concern for pulmonary hypertension related to chronic advanced lung disease, could consider for right heart cath
-She was previously being evaluated at [place] by lung transplant center, unclear of where she stands with this process
-Discussed with hospitalist
Data Reviewed
-
EKG: Tracing Personally Visualized and interpreted
Radiology: Report Reviewed by me
CT Scan: Report Reviewed by me
Medical Tests (Nuc Med, Echo etc): Report Reviewed by me
Labs: Labs Reviewed by me
Old Records: Reviewed
[2024-05-07 13:10] LABS: NT-proBNP 298 pg/ml
--- NOTE | 2024-05-07 16:51 | CM ---
Alert awake oriented patient who lives with her Marlon who lives in a 1 story home with 2 steps to enter and bed bathroom on first floor. She is assisted in all activities of daily living.Offered VN she declined.Robles given explained copy
given declined to sign Robles.
Home oxygen does not know company
Never had VN/SNF
Pharmacy [facility]
PCP Dr Brito
PLAN Home no needs
[2024-05-07] MEDS: LOVENOX 30 MG SC (17:21)
[2024-05-07] MEDS: ASPIR LOW (ENTERIC COATED) 81 MG PO (21:59)
[2024-05-07] MEDS: VISBIOME 1 CAP PO (21:59)
[2024-05-08 03:44] VITALS: BP 124/102
[2024-05-08 04:22] VITALS: BP 124/81
[2024-05-08 06:00] VITALS: BMI 18.4
[2024-05-08 08:05] VITALS: BP 135/74
[2024-05-08 08:22] LABS: Hematocrit 38.1 % (37.0-47.0); Hemoglobin 12.3 g/dL (12.0-16.0); Mean Corp Hgb Conc. 32.3 g/dL (33.0-37.0); Mean Corpuscular Volume 92.9 fL (81.0-99.0); Mean Platelet Volume 9.6 fL (7.4-10.4); Platelet Count 275 10^3/uL (130-400); Red Cell Dist. Width 12.4 % (11.5-14.5); White Blood Cell Count 5.9 10^3/uL (4.8-10.8)
[2024-05-08] MEDS: PULMICORT 0.5 MG INH (08:26)
[2024-05-08] MEDS: STRIVERDI RESPIMAT 2 PUFF INH (08:26)
[2024-05-08] MEDS: SPIRIVA RESPIMAT 2.5 MCG 2 PUFF INH (08:26)
[2024-05-08 08:47] LABS: Blood Urea Nitrogen 11 mg/dl (7-17); Calcium 9.2 mg/dl (8.4-10.2); Carbon Dioxide 31 mmol/L (22-30); Chloride 101 mmol/L (98-107); Estimated Creatinine Clearance 74 ml/min; Glucose 92 mg/dl (70-99); Potassium 3.9 mmol/L (3.5-5.1); Sodium 137 mmol/L (135-145); eGFR > 60.00
[2024-05-08] MEDS: SINGULAIR 10 MG PO (09:26)
[2024-05-08] MEDS: ZETIA 10 MG PO (09:26)
[2024-05-08] MEDS: OSCAL CAL 500 500 MG PO (09:26)
[2024-05-08] MEDS: TOPROL XL 12.5 MG PO (09:27)
[2024-05-08] MEDS: DALIRESP 500 MCG PO (09:27)
--- NOTE | 2024-05-08 09:57 | W.PN.PUL.V3 ---
Today's Communication / Plan
-
Attempt to wean oxygen
Increase activity
Observe off steroids and antibiotics
Echocardiogram improved
Suspect pulmonary status from a COPD perspective is close to her [id number]-zla-[id number]-outpatient pulmonary follow-up as well as HUP/transplant evaluation ongoing
Assessment
-
69-year-old female patient who is a former smoker with underlying oxygen dependent COPD followed by Dr. Green as well as CAD, ischemic cardiomyopathy and hypertension presented with increasing shortness of breath, rapid heart rate and some chest
tightness-pulmonary consulted for shortness of breath/COPD 05/07/2024.
COPD-Gold stage IV with acute exacerbation
Exertional tachycardia/dyspnea
Elevated D-dimer
Mild hyperglycemia
Conditions present prior to admission:
PXFS-mvk-hohxl-oxygen dependent-followed by Dr. Green maintained on budesonide nebulizers, Anoro, and oxygen 2-3 L at rest, 4 L with exertion
Severe diffusing deficit-DLCO 17%
Eosinophilia
Pulmonary nodule
History of hemoptysis
Pulmonary hypertension
Psoriasis
CAD/stent.
Ischemic cardiomyopathy.
Hypertension.
Hyperlipidemia.
Osteoporosis.
Tubal ligation.
Plan
Respiratory decompensation likely a combination of advancing severe end-stage lung disease with possible mild exacerbation in addition to underlying ischemic cardiomyopathy
Supplement oxygen as needed
Patient has home oxygen-2 to 3 L at rest and 4 L with exertion-might require increased
Budesonide nebulizers continue
Spiriva continues-currently on 4 L
Albuterol as needed
Singulair and Daliresp continue
Observe off steroids
Observe off antibiotics
Cardiology evaluation-reviewed with Dr. Argueta
Monitor tachycardia
Echocardiogram 05/07/2024-EF 55-60%, no mitral or aortic regurgitation, PA systolic 30-35-EF improved from 45-50% October 2023
If patient euvolemic then a trial of steroids may be in order
Monitor blood sugar
Insulin supplementation as needed
DVT prophylaxis-on Lovenox
Nutrition
Early mobilization
Patient was last seen by Dr. Green 03/03/2024 and has an appointment 05/29/2024 at 2:30 PM
Patient has appointment at [facility]-Dr. Son-transplant evaluation June 25, 2024
The patient was on Trelegy or Breztri, however, it was not covered and now she is on Anoro and budesonide nebulizers, macrolides were also held
Conversations with [facility] pulmonary-Dr. Levon Wiseman as well as lung transplant correspondence-Dr. Son-were also reviewed
Diagnostic data:
Chest x-ray 05/06/2024-stable hyperinflated COPD changes but no acute pulmonary process
CT chest 05/06/2024-no filling defects to indicate pulmonary embolism, severe emphysematous lung changes, no suspicious pulmonary masses, no evidence for pneumonia
CT chest 01/21/24: 3 mm left upper lobe nodule, severe emphysema.� Dense coronary calcifications.� There is stable thickening in the right major fissure.� Scarring in the left lower lobe
CXR 03/29/23: no acute findings
CT chest 01/22/23: severe emphysema. thickening along the right fissure noted, stable. Prior opacity has resolved. Mild interstitial changes. left lower lobe groundglass abnormality 11 mm, decreased to [address] chest 10/08/22: new 1.3 cm nodule right lower lobe image #44,patchy mild infiltrate per my review right lower lobe superior segment left upper lobe image #36. Nodular thickening along the fissure right upper lobe image #20. Nodular
PFT 05/29/23 ([place]):FVC 2.22/77%, FEV1 0.82/36%, ratio 37. DLCO 17%, TLC 126%, RV 208%.
[place] 01/31/23: FVC 1.84/54%, FEV1 0.79/30%, ratio 43. FVC has worsened when compared to prior study
[place] 09/11/22: FVC 2.25/66%, FEV1 0.93/36%, ratio 42. FVC has improved, FEV1 stable
PFT 05/15/22: FVC 3.16/95%, FEV1 1.04/41%, ratio 34. TLC 5.37/103%, DLCO 3.24/14%. When compared to one year ago, this is stable
6MWT 10/23/23: ambulated 3 minutes on room air, 88%, dyspnea scale 5/10, heart rate 128.� Required 1 L, walked additional 2 minutes, saturation 91%, heart rate 128, dyspnea scale 6/10, at the stop because of shortness of breath
Echo 11/16/23:EF 45%, normal RV size and function, mild aortic stenosis, trivial pericardial effusion.� Stable
Echo 05/15/23: EF 40%, normal RV size and function, PA pressure 39. Mild 1.59 cm
Echo 11/14/21: EF 45%, normal RV size and function, mild pulmonary hypertension PASP 40. Stable
Echo 10/10/20: EF 45%, nl RVF, PASP 43
Subjective Data
-
Date of Service:
Date of Service: May 08, 2024
Chief Complaint: Pulmonary Follow Up and Dyspnea Follow Up
Subjective:
No change in her chronic dyspnea on exertion, denies any chest pain, tightness, productive cough or abdominal pain
Review of Systems
General: Other (Per HPI)
Objective Data
Data Reviewed
Vital Signs / I&O:
Vital Signs
Temp Pulse Resp BP Pulse Ox
97.9 F 82 18 135/74 99
05/08/24 08:05 05/08/24 08:32 05/08/24 08:32 05/08/24 08:05 05/08/24 09:28
Intake and Output
05/07/24 05/08/24 05/09/24
06:59 06:59 06:59
Intake Total 480 / 480 1200 / 1200
Balance 480 / 480 1200 / 1200
SaO2: 99
Nasal Cannula flow liters per minute: 3
Physical Exam
General: Respiratory Distress (n)
HEENT: Normocephalic, Anicteric and Moist Mucous Membranes
Cardiovascular: Regular Rhythm
Respiratory: Clear (Diminished breath sounds, hyperinflation, prolonged expiratory time, mild barrel chested), Wheeze (Forced expiratory), Crackles (Few basilar), Rhonchi (n), Non-Labored Respirations, Accessory Resp Muscle Use (n) and Stridor (n)
GI: Soft, Non Distended and Non Tender
Neurology: Awake, Alert and No Motor Deficits
Skin: Warm, Good Color, Cyanosis (n), Jaundice (n) and Rash (n)
Labs/Micro/Reports
Lab Data
05/08/24 07:36
05/08/24 07:36
--- NOTE | 2024-05-08 11:07 | W.PN.HOSP.TC ---
Today's Communication/Plan
-
dc to home after home O2 evaluation
Assessment / Plan
Assessment / Plan
Assessment:
Exertional Tachycardia/Dyspnea on Exertion
- multifactorial from deconditioning, COPD, hx of CAD
- TSH low, FT4 normal
- Echo: Normal left ventricular size, wall thickness and systolic function. LV ejection fraction is 55-60% by Morris's method of discs. Normal right ventricular systolic function. No mitral regurgitation is seen. No aortic regurgitation is seen.
Tricuspid valve opens normally.
Estimated pulmonary artery pressure of 30-35 mmHg. Trace pulmonic regurgitation. Normal pericardium without effusion. The IVC is of normal size and demonstrates normal respiratory variation.
- BNP normal. No evidence of acute CHF.
- CT-PE negative, CXR negative for acute pathology. Shows stable pattern of advanced COPD.
- no sign of bleeding, Hb stable
- start Diltiazem 120mg CD daily
- follow Cards/Pulm recs
Chronic Hypoxic Respiratory Failure
- Continue supplemental oxygen via nasal cannula
- check home O2 testing today to determine new settings if needed
COPD, no acute exacerbation
- Continue Anoro Ellipta, budesonide and levalbuterol
- Continue montelukast
- Patient maintained on roflumilast as outpatient
Coronary Artery Disease s/p Stent
- Continue aspirin and Plavix, statin
Ischemic Cardiomyopathy
- Echo October 2023: Normal left ventricular size and wall thickness. Mildly reduced to low normal left ventricular systolic function. Apical hypokinesis, basal hypokinesis. LV ejection fraction is 45-50%.
- Monitor Is&Os and Daily Weights
Essential Hypertension
- Continue metoprolol
Hyperlipidemia
- Continue atorvastatin and Zetia
DVT proph: Lovenox
Code Status: Full Code
More than 30 minutes spent in discharge including
Final examination of the patient
Summarizing hospital stay
Instructions for continuing care to all relevant caregivers
Preparation of discharge records, prescriptions, and referral forms
Total time spent (in minutes): 41
Anticipated Discharge: Today
Subjective/Interval History
-
Date of Service: May 08, 2024
no new complaints presently
Objective Data
-
Labs:
Laboratory Results
05/08/24
07:36
WBC 5.9
Hgb 12.3
Hct 38.1
Plt Count 275
Sodium 137
Potassium 3.9
Chloride 101
Carbon Dioxide 31 H
BUN 11
Creatinine 0.6
Glucose 92
Calcium 9.2
Vital Signs:
Vital Signs
Temp Pulse Resp BP Pulse Ox
97.9 F 82 18 135/74 99
05/08/24 08:05 05/08/24 08:32 05/08/24 08:32 05/08/24 08:05 05/08/24 09:57
I&O
05/07/24 05/08/24 05/09/24
06:59 06:59 06:59
Intake Total 480 / 480 1200 / 1200 240 / 240
Balance 480 / 480 1200 / 1200 240 / 240
Physical Exam
-
General: No Apparent Distress
HEENT: Normocephalic and Atraumatic
Respiratory: Negative Wheezes
Cardiac: Regular Rhythm and S1/S2
GI: Soft and Nontender
Genito-urinary: No Costovertebral Tender
Musculoskeletal: No Edema
Neuro: AO x 3
Hematologic / Lymphatic: No Lymphadenopathy
Psych: Calm
Data Reviewed
-
Total Time Spent with Patient (in minutes): 41
Labs: Labs Reviewed by me
--- NOTE | 2024-05-08 11:25 | W.DS.TRANS ---
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
-
Discharge Instructions:
Discharge Diagnosis/Procedures End stage COPD. Exertional tachycardia
Diet 2 Gram Sodium
Activity As tolerated
Bathing Restrictions None
Instructions:
Stand-Alone Forms:
Changes to Home Medications: No
Discharge Medications:
DC Medications w/original date entered in [employer]
calcium carbonate 600 mg PO BID Supplement 04/25/17
clopidogrel 75 mg tablet 75 mg PO HS Blood clot prevention/tx 04/25/17
aspirin 81 mg tablet,delayed release 81 mg PO HS Blood clot prevention/tx 10/12/20
atorvastatin 40 mg tablet 40 mg PO HS High cholesterol 10/12/20
metoprolol succinate 25 mg tablet,extended release 24 hr 12.5 mg PO DAILY Blood pressure 10/12/20
montelukast 10 mg tablet 10 mg PO DAILY Lung/breathing issues 10/12/20
ezetimibe 10 mg tablet 10 mg PO DAILY High cholesterol 06/22/22
levalbuterol tartrate 45 mcg/actuation aerosol inhaler 2 puff inhalation R Q4HPRN PRN sob/wheezing 06/22/22
Lactobac no.2-Bifidobac no.1-S. thermo 112.5 billion cell capsule (Visbiome) 1 cap PO HS 05/06/24
budesonide 0.5 mg/2 mL suspension for nebulization 0.5 mg inhalation R BID 05/06/24
doxepin 3 mg tablet 3 mg PO HS 05/06/24
ibandronate 150 mg tablet 150 mg PO QMONTH 05/06/24
roflumilast 500 mcg tablet 500 mcg PO DAILY 05/06/24
therapeutic multivitamin 1 tab PO HS 05/06/24
umeclidinium 62.5 mcg-vilanterol 25 mcg/actuation powdr for inhalation (Anoro Ellipta) 1 inh inhalation R DAILY@1200 05/06/24
diltiazem HCl 120 mg capsule,extended release 24 hr 120 mg PO DAILY #30 caps 05/08/24
Home Medication Changes
Pending Results: No
Total time spent discharging patient (in min): 41
[2024-05-08 11:30] VITALS: BP 112/61
[2024-05-08] MEDS: CARDIZEM CD 120 MG PO (11:48)
--- NOTE | 2024-05-08 13:28 | CM ---
MF entered order for discharge.
Pt said she was ready for discharge.
Her will drive her home.
She has her home oxygen on 3 liters Pox 98%.
Offered VN She declined need,
PLAN Home no needs
--- NOTE | 2024-05-08 17:11 | W.PN.CARDCBS ---
Today's Communication / Plan
-
Okay for discharge from cardiology.
Echo with preserved ejection fraction and no significant valve disease with normal PA pressures.
Continue medical therapy for CAD including aspirin, metoprolol, atorvastatin, Zetia, and Plavix.
Could further titrate Toprol or add diltiazem for tachycardia.
Impression / Plan
-
Primary Flour Inspector: Dr. Nieves
Assessment:
HEBERT
Sinus tachycardia
CAD with remote [place] resulting in LAD PCI, residual chronically occluded small dominant RCA
Ischemic cardiomyopathy with recovered EF 45 to 50% by most recent echocardiogram
Hyperlipidemia
Severe COPD/emphysema on chronic home O2
Pulmonary nodule
Former smoker
ECHO 11/16/2023: EF 45 to 50%, apical hypokinesis, basal hypokinesis, aortic sclerosis with mild , trivial localized pericardial effusion
ECHO 05/07/2024: EF 55 to 60%, no significant valve disease, PA pressure 30
Plan:
Results of echo were discussed with the patient. proBNP is normal, troponin is normal and echo has a preserved ejection fraction with normal pulmonary pressures.
At this point I suspect most of her dyspnea exertion is related to her severe underlying lung disease. We did discuss consideration for an outpatient Lexiscan nuclear stress test.
If she does require evaluation for lung transplantation, would recommend right and left heart catheterization, but for now would recommend outpatient follow-up.
Continue medical therapy including aspirin, atorvastatin, and Plavix.
Her blood pressure is mildly elevated. She gets tachycardia with exercise. Would recommend adding low-dose diltiazem 120 mg daily.
Progress Note - Flour Inspector
Subjective
Date of Service: May 08, 2024
Patient seen around 11 AM. Her breathing is overall stable.
Objective
Labs:
05/08/24 07:36
05/08/24 07:36
Labs
Hgb 12.3 g/dL (12.0-16.0) 05/08/24 07:36
Hct 38.1 % (37.0-47.0) 05/08/24 07:36
Plt Count 275 10^3/uL (130-400) 05/08/24 07:36
PT 12.7 Sec (11.4-14.6) 05/06/24 14:52
INR 0.90 05/06/24 14:52
APTT 30.0 Sec (23.4-35.0) 05/06/24 14:52
Sodium 137 mmol/L (135-145) 05/08/24 07:36
Potassium 3.9 mmol/L (3.5-5.1) 05/08/24 07:36
BUN 11 mg/dl (7-17) 05/08/24 07:36
Creatinine 0.6 mg/dL (0.6-1.0) 05/08/24 07:36
Glucose 92 mg/dl (70-99) 05/08/24 07:36
Troponins
05/06/24
14:52
Troponin I < 0.012
Vital Signs and I&O:
Vital Signs
Temp Pulse Resp BP Pulse Ox
98 F 81 20 112/61 98
05/08/24 11:30 05/08/24 11:48 05/08/24 11:30 05/08/24 11:48 05/08/24 11:30
Vital Signs
Temp Pulse Resp BP Pulse Ox
98 F 81 20 112/61 98
05/08/24 11:30 05/08/24 11:48 05/08/24 11:30 05/08/24 11:48 05/08/24 11:30
Intake & Output
05/06/24 05/07/24 05/08/24 05/09/24
06:59 06:59 06:59 06:59
Intake Total 480 / 480 1200 / 1200 240 / 240
Balance 480 / 480 1200 / 1200 240 / 240
Physical Exam
Physical Exam
GEN: No distress, awake, Ox3
HEENT: supple, anicteric, mmm
LUNGS: Decreased breath sounds
CV: Reg, S1/S2, 1/6 syst LSB, no gallop
ABD: soft, BS+, NT/ND
EXT: No edema
NEURO: Gross non-focal
SKIN: No rash
== END 2024-05-08 12:43 | disposition home or self-care (01) ==
LOC: 4 EAST ACU 23:25
PROVIDERS: Physician Assistant; ADMITTING PHYSICIAN Hospitalist; ATTENDING PHYSICIAN Internal Medicine; EMERGENCY PHYSICIAN Student in an Organized Health Care Education/Training Program; FAMILY PHYSICIAN Family Medicine; OTHER PHYSICIAN Internal Medicine Cardiovascular Disease; OTHER PHYSICIAN Internal Medicine Critical Care Medicine
DX: J43.9 Emphysema, unspecified (principal); R07.89 Other chest pain; R05.9 Cough, unspecified; E78.00 Pure hypercholesterolemia, unspecified; I10 Essential (primary) hypertension; R00.0 Tachycardia, unspecified; I25.5 Ischemic cardiomyopathy; J96.11 Chronic respiratory failure with hypoxia; M81.0 Age-related osteoporosis without current pathological fracture; R73.9 Hyperglycemia, unspecified; D72.10 Eosinophilia, unspecified; R91.1 Solitary pulmonary nodule; R00.2 Palpitations; L40.9 Psoriasis, unspecified; I27.20 Pulmonary hypertension, unspecified; I25.10 Atherosclerotic heart disease of native coronary artery without angina pectoris; I25.2 Old myocardial infarction; Z95.5 Presence of coronary angioplasty implant and graft; Z87.891 Personal history of nicotine dependence; Z79.02 Long term (current) use of antithrombotics/antiplatelets; Z79.82 Long term (current) use of aspirin; Z82.62 Family history of osteoporosis; Z82.49 Family history of ischemic heart disease and other diseases of the circulatory system; Z82.3 Family history of stroke; Z99.81 Dependence on supplemental oxygen; Z80.1 Family history of malignant neoplasm of trachea, bronchus and lung
CPT/HCPCS: 71046; 71275; 80048; 80053; 83735; 83880; 84439; 84443; 84484; 85025; 85027; 85379; 85610; 85730; 93005; 93306; 94640; 97162; 97166; 97530; 99285; 99406; Q9967

== ENCOUNTER → 2025-02-05 13:20 | Outpatient (REF) | payer OTHER, SELFPAY ==
[2025-02-05 16:41] LABS: ALT (SGPT) 18 U/L (0-35); AST (SGOT) 25 U/L (14-36); Albumin 4.2 g/dl (3.5-5.0); Alkaline Phosphatase 86 U/L (38-126); Blood Urea Nitrogen 9 mg/dl (7-17); Calcium 9.8 mg/dl (8.4-10.2); Carbon Dioxide 28 mmol/L (22-30); Chloride 102 mmol/L (98-107); Glucose 106 mg/dl (70-99); HDL Cholesterol 65 mg/dl; LDL Cholesterol, Calculated 79 mg/dl; Potassium 4.3 mmol/L (3.5-5.1); Sodium 138 mmol/L (135-145); Total Protein 6.9 g/dl (6.3-8.2); Very Low Density Lipoprotein 21 mg/dl (0-30); eGFR > 60.00
== END ==
LOC: HWLAB 13:20
PROVIDERS: ATTENDING PHYSICIAN Internal Medicine Interventional Cardiology; FAMILY PHYSICIAN Family Medicine
DX: E78.00 Pure hypercholesterolemia, unspecified (principal)
CPT/HCPCS: 36415; 80053; 80061

== ENCOUNTER → 2025-02-10 15:34 | Outpatient (REF) | payer OTHER, SELFPAY | LOC: HWRAD 15:34 | PROVIDERS: ATTENDING PHYSICIAN Otolaryngology; FAMILY PHYSICIAN Family Medicine | DX: E04.1 Nontoxic single thyroid nodule (principal) | CPT/HCPCS: 76536 ==

== ENCOUNTER 2025-04-05 12:39 | Emergency (ER) | payer OTHER, SELFPAY ==
[2025-04-05 12:42] VITALS: BP 128/83
[2025-04-05 12:58] VITALS: BP 121/89
[2025-04-05 13:00] VITALS: BP 132/73
[2025-04-05 13:05] VITALS: BMI 15.5
[2025-04-05 13:20] LABS: Hematocrit 39.1 % (37.0-47.0); Hemoglobin 12.4 g/dL (12.0-16.0); Mean Corp Hgb Conc. 31.7 g/dL (33.0-37.0); Mean Corpuscular Volume 92.9 fL (81.0-99.0); Nucleated Red Blood Cells % 0 %; Platelet Count 404 10^3/uL (130-400); Red Cell Dist. Width 12.5 % (11.5-14.5)
--- NOTE | 2025-04-05 13:29 | ED.GENMED ---
History of Present Illness
General
Chief Complaint: Breathing Problem
Source: patient
Exam Limitations: none
Time Seen by Provider: 04/05/25 13:09
Nursing documentation reviewed up to this point in time: agreed with
History of Present Illness
History of Present Illness:
70-year-old female with history of COPD on home oxygen 2 L nasal cannula, CAD, HLD, ME, cardiac stent 2016 presents for shortness of breath and cough.
Over the past 3 days, (the weekend) her home oxygen concentrator stopped working and no one from the company would come out over the weekend.
She used her portable oxygen unit that she feels was not as effective, maintaining an oxygen saturation of 94-95%. She reports feeling short of breath, especially when ambulating to the bathroom. The patient has been experiencing a non-productive
cough for the past three days with no sputum production. She denies fever, nausea, vomiting, diarrhea, constipation, chest pain, abdominal pain, or changes in urinary or bowel habits. No history of recent infections or respiratory illnesses is
reported.
Oxygen tank was delivered today to her home.
Past History
Past History
ED Past Medical History: CAD, COPD, HTN and Hypercholesterolemia
ED Past Surgical History: Cardiac
Social History
Tobacco: Former smoker
Alcohol: None
Drug: None
Personal:
Living: with family
Review of Systems
Review of Systems
Allergies reviewed?: Yes
All Other Systems: ROS reviewed and negative except as documented in HPI and ROS
Constitutional: Denies fever or chills
Respiratory: Reports cough and trouble breathing
Cardiac: Denies chest pain
ABD/GI: Denies abdominal pain, nausea, vomiting, diarrhea, constipated or anorexia
: Denies dysuria, frequency or difficulty voiding
Musculoskeletal: Denies edema
Skin: Reports no symptoms
Neurological: Reports no symptoms
Phy Exam
Physical Exam
Physical Exam:
GENERAL: No acute distress. A&Ox3.
CONSTITUTIONAL: Afebrile.
EYES: clear, conjunctivae normal
ENMT: moist mucus membranes, Pharynx nl
RESPIRATORY: Regular respirations, mildly labored, lungs clear with diminished BS, Pulse ox 98% on 3L n.c.
CARDIOVASCULAR: Regular rate and rhythm, no murmurs, no rubs.
GI: Soft, nontender, normal BS
MUSCULOSKELETAL: Moves with ease. Well perfused. No edema
SKIN: Warm, dry, pale
PSYCH: Normal mood and affect. Well kept, interactive and appropriate
NEUROLOGIC: Awake, alert and oriented. No focal neurological deficits
Scores
Heart Failure Risk
Heart Failure Risk Score: Not Applicable
Course
Orders/Labs/Results
Orders:
Orders
04/05/25 13:04
Electrocardiogram (*1) Urgent
Reason for Study: Other
Other Reason for Exam: Respiratory Distress
Cardiac Monitoring- Treatment ONCE
EKG- Treatment ONCE
IV Insert/Care/Rem.- Treatment PRN
CR Chest - 2 Views Urgent
Comment:
Reason For Exam: respiratory distress
O2 Therapy [RESP] Urgent
Titrate/Wean O2 to maintain O2 sat greater than (%): 93
Special Instructions: TO MAINTAIN CONTINUOUS O2 SATS >/= 93%
Pulse Ox/cont/shift [RESP] Urgent
Quantity: 1
Special Instructions: continuous pulse ox
04/05/25 13:05
Complete Blood Count/With Diff Urgent
Comprehensive Metabolic Panel Urgent
NT-proBNP Urgent
Troponin I Urgent
04/05/25 15:30
Dexamethasone Sod Phosphate [Decadron] 10 mg IV NOW STA
Ipratropium/Albuterol Sulfate [Duoneb] 3 ml INH R NOW STA
Abnormal Lab Results
04/05/25
13:05
MCHC 31.7 L g/dL
(33.0-37.0)
Plt Count 404 H 10^3/uL
(130-400)
Absolute Neuts (auto) 8.0 H 10^3/uL
(1.4-6.5)
Neutrophils % 76.7 H %
(42.2-75.2)
Lymphocytes % 14.1 L %
(20.5-51.1)
Sodium 134 L mmol/L
(135-145)
Glucose 133 H mg/dl
(70-99)
04/05/25 13:05
04/05/25 13:05
Vital Signs
Initial and Last Documented VS:
Initial Vital Signs
Temp Pulse Resp BP Pulse Ox
97.9 F 110 18 128/83 95
04/05/25 12:42 04/05/25 12:42 04/05/25 12:42 04/05/25 12:42 04/05/25 12:42
Last Documented Vital Signs
Temp Pulse Resp BP Pulse Ox
97.9 F 74 13 129/92 100
04/05/25 12:42 04/05/25 16:45 04/05/25 16:45 04/05/25 16:00 04/05/25 16:45
MDM/Problems Addressed
Differential Diagnosis Includes:
Exacerbation COPD, pneumonia
MDM/Problems Addressed:
70-year-old female with history of COPD on home oxygen 2 L nasal cannula, CAD, HLD, ME, cardiac stent 2016 presents for shortness of breath and cough.
Over the past 3 days, (the weekend) her home oxygen concentrator stopped working and no one from the company would come out over the weekend.
She used her portable oxygen unit that she feels was not as effective, maintaining an oxygen saturation of 94-95%. She reports feeling short of breath, especially when ambulating to the bathroom. The patient has been experiencing a non-productive
cough for the past three days with no sputum production. She denies fever, nausea, vomiting, diarrhea, constipation, chest pain, abdominal pain, or changes in urinary or bowel habits. No history of recent infections or respiratory illnesses is
reported.
Oxygen tank was delivered today to her home.
EKG:
Afebrile, NAD Pulse ox 98% on 3L n.c.
CBC normal
CMP normal
Troponin normal
BNP WNL
3:30 PM:
Chest x-ray radiology report read: No acute cardiopulmonary abnormality. Findings suggestive COPD emphysema similar to prior
Pt OOB to BR and pulse ox dropped to 88%, back up to 95% within a minute
4:30 p.m.
After Duoneb and Decadron, pt OOB and ambulated around room. Pulse ox maintained at 95% on 3L n.c., HR 120 and pursed lip breathing. Sat down and within a minute HR 88.
Pt offered admission but she does not want to stay
She states all she does at home is walk about 12 feet to her bathroom and that typically is the extent to her activity. She is most likely at her baseline, so OK to go home.
She has home O2 now, she has nebulizer with Budesonide she uses twice a day. She is out of Albuterol. Rx sent to her pharmacy for Albuterol, Prednisone taper
*Pulse Oximetry
SaO2: 96
Nasal Cannula flow liters per minute: 3
Patient hypoxic: yes
Comment: 88% RA, improves to 96% at rest on 3 L n.c.
*EKG
EKG Intrepretation Date: 04/05/25
Interpretation: normal
Heart Rate: 81
Rate: normal
Rhythm: sinus
Bosler: normal axis
Interval: normal interval
QRS Pattern: normal QRS
Ischemia: no ischemia
*Critical Care Note
Total Time (30-74mins, 75-104mins- exclusive of procedures): Not Applicable
ED Attending Note
-
Portions of this chart may have been created with voice recognition software.� Occasional wrong word or��sound alike� substitutions may have occurred due to the inherent limitations of voice recognition software.
Discharge Plan
Departure
Patient Disposition: Home (Routine Discharge)
Date of Disposition: 04/05/25
Time of Disposition: 17:05
Patient with high blood pressure during this ER visit?: No
Condition: Fair
Discharge Problem:
COPD exacerbation
Instructions: Exacerbation of COPD (DC)
Prescriptions:
New
albuterol sulfate 1.25 mg/3 mL solution for nebulization
1.25 mg inhalation QID PRN (Reason: shortness of breath or wheezing) Qty: 90 0RF
prednisone 10 mg Tablet
See Rx Instructions .ROUTE .COMPLEX Qty: 45 0RF
Rx Instructions:
Take By Mouth:
50 mg daily x3 days, 40 mg daily x3 days,
30 mg daily x3 days, 20 mg daily x3 days,
10 mg daily x3 days
No Action
clopidogrel 75 MG tablet
75 mg PO HS
calcium carbonate 600 MG tablet
600 mg PO BID
montelukast 10 MG tablet
10 mg PO DAILY
metoprolol succinate 25 MG tablet extended release 24 hr
12.5 mg PO DAILY
atorvastatin 40 MG tablet
40 mg PO HS
aspirin 81 MG tablet,delayed release (DR/EC)
81 mg PO HS
ezetimibe 10 mg tablet
10 mg PO DAILY
levalbuterol tartrate 45 mcg/actuation HFA aerosol inhaler
2 puff INHALATION R Q4HPRN PRN (Reason: sob/wheezing)
therapeutic multivitamin Tablet
1 tab PO HS
budesonide 0.5 mg/2 mL Suspension For Nebulization
0.5 mg INHALATION R BID
ibandronate 150 mg Tablet
150 mg PO QMONTH
Visbiome 112.5 billion cell Capsule
1 cap PO HS
doxepin 3 mg Tablet
3 mg PO HS
roflumilast 500 mcg Tablet
500 mcg PO DAILY
Anoro Ellipta 62.5-25 mcg/actuation Blister With Device
1 inh INHALATION R DAILY@1200
diltiazem HCl 120 mg Capsule,Extended Release 24hr
120 mg PO DAILY Qty: 30 0RF
Referrals:
Tomasa Green MD [Active, Pulmonary Medicine] - Call in 1-3 days for appt
Keily Naidu DO [Family Provider, Family Practice] - Call in 1-3 days for appt
Activity Restrictions/Additional Instructions:
As we discussed, I sent a prescription to your pharmacy for albuterol inhalations and a prednisone taper.
Start the prednisone tomorrow as you were given a dose of steroid here today.
Return here immediately for worsening shortness of breath or feeling sicker in any way.
Interventions
Interventions:
*Risk Screen - Suicide Last Done: 04/05/25 12:42
ED- Cardiac Assessment Last Done: 04/05/25 16:04
ED- Pulmonary Assessment Last Done: 04/05/25 16:06
Discharge Date and Time
Print Language: IRISH
[2025-04-05 13:34] LABS: ALT (SGPT) 21 U/L (0-35); AST (SGOT) 26 U/L (14-36); Albumin 4.4 g/dl (3.5-5.0); Alkaline Phosphatase 116 U/L (38-126); Blood Urea Nitrogen 11 mg/dl (7-17); Calcium 9.5 mg/dl (8.4-10.2); Carbon Dioxide 28 mmol/L (22-30); Chloride 100 mmol/L (98-107); Estimated Creatinine Clearance 58 ml/min; Glucose 133 mg/dl (70-99); Potassium 3.6 mmol/L (3.5-5.1); Sodium 134 mmol/L (135-145); Total Protein 7.5 g/dl (6.3-8.2); eGFR > 60.00
[2025-04-05 13:46] LABS: Troponin I < 0.012 ng/ml
[2025-04-05 14:00] VITALS: BP 112/51
[2025-04-05 15:00] VITALS: BP 111/62
[2025-04-05] MEDS: DUONEB 3 ML INH (15:35)
[2025-04-05] MEDS: DECADRON 10 MG IV (15:35)
[2025-04-05 16:00] VITALS: BP 129/92
== END 2025-04-05 17:39 | disposition home or self-care (01) ==
LOC: EMR 12:39
PROVIDERS: EMERGENCY PHYSICIAN Emergency Medicine; FAMILY PHYSICIAN Family Medicine
DX: J44.1 Chronic obstructive pulmonary disease with (acute) exacerbation (principal); I25.10 Atherosclerotic heart disease of native coronary artery without angina pectoris; I10 Essential (primary) hypertension; E78.00 Pure hypercholesterolemia, unspecified; I25.2 Old myocardial infarction; Z87.891 Personal history of nicotine dependence; Z95.5 Presence of coronary angioplasty implant and graft; Z99.81 Dependence on supplemental oxygen
CPT/HCPCS: 99283; 94640; 96374; 71046; 80053; 83880; 84484; 85025; 93005

== ENCOUNTER 2025-04-28 02:26 | Observation (INO) | payer OTHER, SELFPAY ==
[2025-04-27 23:16] VITALS: BP 122/87
[2025-04-27 23:36] VITALS: BP 131/74
--- NOTE | 2025-04-27 23:53 | ED.GENMED ---
History of Present Illness
General
Chief Complaint: Breathing Problem
Source: patient
Exam Limitations: none
Time Seen by Provider: 04/27/25 23:32
History of Present Illness
History of Present Illness:
See MDM
Past History
Past History
ED Past Medical History: CAD, COPD, HTN and Hypercholesterolemia
ED Past Surgical History: Cardiac
Social History
Tobacco: Former smoker
Alcohol: None
Drug: None
Personal:
Living: with family
Phy Exam
Physical Exam
Physical Exam:
See MDM
Scores
Heart Failure Risk
Heart Failure Risk Score: Not Applicable
Course
Orders/Labs/Results
Orders:
Orders
04/27/25 23:53
Complete Blood Count/With Diff Urgent
Comprehensive Metabolic Panel Urgent
PTT Urgent
Prothrombin Time Urgent
04/28/25 00:02
Ipratropium/Albuterol Sulfate [Duoneb] 3 ml INH R NOW STA
04/28/25 01:16
Dexamethasone Sod Phosphate [Decadron] 10 mg IV NOW STA
04/28/25 23:53
CR Chest - 2 Views Urgent
Reason For Exam: SOB
Abnormal Lab Results
04/28/25 04/28/25
00:10 00:11
RBC 3.89 L 10^6/uL
(4.20-5.40)
Hgb 11.7 L g/dL
(12.0-16.0)
Hct 36.0 L %
(37.0-47.0)
MCHC 32.5 L g/dL
(33.0-37.0)
Abs Immat Gran (auto) 0.1 H 10^3/uL
(0-0.05)
Absolute Neuts (auto) 8.3 H 10^3/uL
(1.4-6.5)
Immature Gran % 0.6 H %
(0-0.5)
Neutrophils % 78.6 H %
(42.2-75.2)
Lymphocytes % 12.6 L %
(20.5-51.1)
BUN 24 H mg/dl
(7-17)
Glucose 165 H mg/dl
(70-99)
04/28/25 00:10
04/28/25 00:11
Vital Signs
Initial and Last Documented VS:
Initial Vital Signs
Temp Pulse Resp BP Pulse Ox
97.4 F 122 24 122/87 91
04/27/25 23:16 04/27/25 23:16 04/27/25 23:16 04/27/25 23:16 04/27/25 23:16
Last Documented Vital Signs
Temp Pulse Resp BP Pulse Ox
97.4 F 85 13 134/78 98
04/27/25 23:16 04/28/25 00:45 04/28/25 00:45 04/28/25 01:08 04/28/25 01:08
Procedures
Nosebleed
Drug treatment: none
Treatment: Merocel packing
Post treatment bleeding: none- good control
MDM/Problems Addressed
Differential Diagnosis Includes:
Note:
CHIEF COMPLAINT(S)
Nosebleed lasting six hours and difficulty breathing.
HISTORY OF PRESENT ILLNESS
The patient is a 70-year-old female with a history of Chronic Obstructive Pulmonary Disease (COPD) and currently on clopidogrel (Plavix) and continuous oxygen therapy. She presents with a nosebleed that has persisted for six hours, primarily on the
left side, which has never lasted more than an hour in the past. The nosebleed has caused her difficulty in breathing, exacerbated by the clotting in the nasal passage. At home, she usually receives oxygen at three liters per minute, but the flow
was increased due to her breathing difficulty. The patient has not sustained any nasal injury, and the bleeding began spontaneously.
PHYSICAL EXAM
General: Alert, no acute distress.
Skin: Warm, dry.
Head: Normocephalic, atraumatic
Neck: Appears supple, trachea midline.
Eyes, Ears, Nose, Mouth, and Throat: Active bleeding to left nare which appears to be originating from nasal septum
Cardiovascular: No signs of cyanosis
Respiratory: Respirations are non-labored. Poor air exchange throughout
Abdomen: Non-distended
Musculoskeletal: No deformities
Neurological: No focal neurological deficit observed.
Psychiatric: Cooperative, appropriate mood and affect.
CHRONIC MEDICAL CONDITIONS SIGNIFICANTLY AFFECTING CARE
Chronic conditions affecting care: Chronic Obstructive Pulmonary Disease (COPD).
SOCIAL DETERMINANTS OF HEALTH
None directly identified through conversation.
PLAN
1. Investigate the cause of nosebleed and consider nasal packing that allows continued oxygen use.
2. Monitor and adjust oxygen therapy as needed to ensure adequate oxygenation.
DIFFERENTIAL DIAGNOSIS
The Differential Diagnosis includes, in no particular order and is not limited to:
- Epistaxis secondary to anticoagulant therapy.
- Nasal dryness related to oxygen therapy.
- Nasal septum deviation or pathology.
- Hypertension-related bleeding.
- Nasal or sinus infection.
- Coagulopathy.
- Trauma (though no history was reported).
- Allergic rhinitis.
- Neoplasm in the nasal cavity.
- Idiopathic spontaneous epistaxis.
MEDICAL DECISION MAKING
- Complexity of Data Reviewed: Chronic conditions affecting care - Chronic Obstructive Pulmonary Disease (COPD).
- Data:
- Category 1: The patients home oxygen therapy regimen and medical history were reviewed.
- Category 2: None applicable as no external records reviewed or independent historian noted.
- Category 3: Plan discussed with the patient regarding nasal packing compatible with oxygen therapy.
- Risk: Considered the risk of complications due to nasal packing and clopidogrel use, monitored oxygen therapy to avoid respiratory distress exacerbation.
DIAGNOSIS
Epistaxis (R04.0) potentially related to anticoagulant therapy and nasal dryness. Chronic Obstructive Pulmonary Disease (J44.9).
CARE-UPDATE
04/27/25 - 23:56
Due to active bleeding, merocel packing was placed in the left nostril, choosing a type with an interior opening to accommodate oxygen use. The nasal cannula is frequently becoming dislodged from the tubing. The patient will likely need admission
for ongoing oxygen support.
SUMMARY OF ENCOUNTER
The patient, a 70-year-old female with a history of Chronic Obstructive Pulmonary Disease (COPD) and currently on continuous oxygen therapy, was seen in the emergency department for a persistent nosebleed lasting six hours and difficulty breathing.
The nosebleed primarily on the right side, had contributed to breathing difficulty due to clotting in the nasal passage. The patient mentioned feeling somewhat better following a breathing treatment. A chest x-ray was performed and was clear. It was
determined that the patient was experiencing a COPD exacerbation, potentially compounded by nasal irritation from oxygen therapy, which also contributed to the nosebleed.
DISPOSITION
Admit to the hospital service for COPD exacerbation and further evaluation of the nosebleed.
ASSESSMENT
The patients symptoms and current condition suggest a COPD exacerbation potentially complicated by nasal irritation from oxygen therapy leading to epistaxis.
EMERGENCY TREATMENTS ADMINISTERED
IV dose of dexamethasone (Decadron) administered to manage COPD exacerbation symptoms.
PLAN
Admit to the hospital for continued management of COPD exacerbation and further evaluation of the nosebleed. Addressing nasal irritation and ensuring adequate oxygenation while assessing the cause of bleeding will be part of the inpatient care plan.
MEDICATION RECONCILIATION
Dexamethasone (Decadron) was administered intravenously for COPD exacerbation.
MEDICAL DECISION MAKING
1. Number and Complexity of Problems Addressed: Chronic conditions affecting care: Chronic Obstructive Pulmonary Disease (COPD) and Epistaxis. The differential diagnosis included potential epistaxis secondary to anticoagulant therapy, nasal dryness
related to oxygen therapy, and possible nasal or sinus infection.
2. Data:
- Category 1: Chest x-ray was independently interpreted as clear to rule out other acute respiratory conditions.
- Category 3: Management included admission to hospital services for further evaluation and treatment.
3. Risk: Admission was considered necessary due to the COPD exacerbation compounded by the nosebleed, requiring continuous oxygen support and further medical evaluation.
DIAGNOSIS
Chronic Obstructive Pulmonary Disease, unspecified (ICD-10: J44.9), Epistaxis (ICD-10: R04.0).
*Pulse Oximetry
SaO2: 91
Oxygen Mode of Delivery: Room air
Patient hypoxic: no
*Critical Care Note
Total Time (30-74mins, 75-104mins- exclusive of procedures): Not Applicable
ED Attending Note
-
Portions of this chart may have been created with voice recognition software.� Occasional wrong word or��sound alike� substitutions may have occurred due to the inherent limitations of voice recognition software.
Discharge Plan
Departure
Patient Disposition: Admit
Date of Disposition: 04/28/25
Time of Disposition: 01:20
Admit to: Med/Surg
Presentation/result/management discussed w/ accepting MD/DO: Hospitalist
Discharge Problem:
Acute exacerbation of chronic obstructive pulmonary disease, Acute anterior epistaxis
Prescriptions:
No Action
clopidogrel 75 MG tablet
75 mg PO HS
calcium carbonate 600 MG tablet
600 mg PO BID
montelukast 10 MG tablet
10 mg PO DAILY
metoprolol succinate 25 MG tablet extended release 24 hr
12.5 mg PO DAILY
atorvastatin 40 MG tablet
40 mg PO HS
aspirin 81 MG tablet,delayed release (DR/EC)
81 mg PO HS
ezetimibe 10 mg tablet
10 mg PO DAILY
levalbuterol tartrate 45 mcg/actuation HFA aerosol inhaler
2 puff INHALATION R Q4HPRN PRN (Reason: sob/wheezing)
therapeutic multivitamin Tablet
1 tab PO HS
budesonide 0.5 mg/2 mL Suspension For Nebulization
0.5 mg INHALATION R BID
ibandronate 150 mg Tablet
150 mg PO QMONTH
Visbiome 112.5 billion cell Capsule
1 cap PO HS
doxepin 3 mg Tablet
3 mg PO HS
roflumilast 500 mcg Tablet
500 mcg PO DAILY
Anoro Ellipta 62.5-25 mcg/actuation Blister With Device
1 inh INHALATION R DAILY@1200
diltiazem HCl 120 mg Capsule,Extended Release 24hr
120 mg PO DAILY Qty: 30 0RF
albuterol sulfate 1.25 mg/3 mL solution for nebulization
1.25 mg inhalation QID PRN (Reason: shortness of breath or wheezing) Qty: 90 0RF
prednisone 10 mg Tablet
See Rx Instructions .ROUTE .COMPLEX Qty: 45 0RF
Rx Instructions:
Take By Mouth:
50 mg daily x3 days, 40 mg daily x3 days,
30 mg daily x3 days, 20 mg daily x3 days,
10 mg daily x3 days
Referrals:
Keily aNidu DO [Family Provider, Family Practice]
Interventions
Interventions:
*Risk Screen - Suicide Last Done: 04/27/25 23:16
*General Assessment Last Done: 04/28/25 00:31
*ED COVID-19 Vaccine History Last Done: 04/28/25 00:31
*ED Influenza Vaccine History Last Done: 04/28/25 00:31
[facility] Fall Risk Assessment Tool Last Done: 04/28/25 01:14
ED- Cardiac Assessment Last Done: 04/28/25 00:46
ED- Pulmonary Assessment Last Done: 04/28/25 00:32
Discharge Date and Time
Print Language: ICELANDIC
[2025-04-28] VITALS (8 sets, daily range): BP systolic 120–166; BP diastolic 74–101; BMI 16.0
[2025-04-28] MEDS: DUONEB 3 ML INH (00:04)
[2025-04-28 00:34] LABS: APTT 28.5 Sec (23.4-35.0); INR 1.08; PT 14.1 Sec (11.4-14.6)
[2025-04-28 00:48] LABS: ALT (SGPT) 23 U/L (0-35); AST (SGOT) 27 U/L (14-36); Albumin 3.9 g/dl (3.5-5.0); Alkaline Phosphatase 95 U/L (38-126); Blood Urea Nitrogen 24 mg/dl (7-17); Calcium 8.8 mg/dl (8.4-10.2); Carbon Dioxide 28 mmol/L (22-30); Chloride 102 mmol/L (98-107); Estimated Creatinine Clearance 55 ml/min; Glucose 165 mg/dl (70-99); Potassium 3.9 mmol/L (3.5-5.1); Sodium 136 mmol/L (135-145); Total Protein 6.5 g/dl (6.3-8.2); eGFR > 60.00
[2025-04-28 01:01] LABS: Hematocrit 36.0 % (37.0-47.0); Hemoglobin 11.7 g/dL (12.0-16.0); Mean Corp Hgb Conc. 32.5 g/dL (33.0-37.0); Mean Corpuscular Volume 92.5 fL (81.0-99.0); Nucleated Red Blood Cells % 0 %; Platelet Count 248 10^3/uL (130-400); Red Cell Dist. Width 13.4 % (11.5-14.5)
[2025-04-28] MEDS: DECADRON 10 MG IV (01:25)
--- NOTE | 2025-04-28 02:22 | HPS.HSE ---
Family Physician
-
Family Physician: eKily Naidu
Chief Complaint
-
difficulty breathering
History of Present Illness
70 female history of COPD on 3 L nasal cannula, CAD, hyperlipidemia, [place], who presented with difficulty breathing secondary to epistaxis that would not stop and that continued for approximately 4 to 5 hours. Typically when epistaxis does occur for
takes about an hour for bleeding to spontaneously resolve however at this time it did not and continued to bleed. It was spontaneous. She uses oxygen without humidified air and with her heat being on and that dry cold air is caused her nares to be
dry or increasing risk of bleeding. At the time of my evaluation she was on 4 L satting in the 95% range.
Medical History
Past Medical History
Past Medical History: Reports CAD and COPD
Past Surgical History: Reports None and Other
Social History
Alcohol: None
Family History
Family History: Not pertinent
Allergies / Home Medications
Allergies reflects when Allergies were last updated in [employer].
Home Medications with original date entered in [employer]
Allergy/Medication List:
Allergies
Allergy/AdvReac Type Severity Reaction Status Date / Time
No Known Allergies Allergy Verified 04/05/25 12:42
Home Medications
calcium carbonate 600 mg PO BID Supplement 04/25/17
clopidogrel 75 mg tablet 75 mg PO HS Blood clot prevention/tx 04/25/17
aspirin 81 mg tablet,delayed release 81 mg PO HS Blood clot prevention/tx 10/12/20
atorvastatin 40 mg tablet 40 mg PO HS High cholesterol 10/12/20
metoprolol succinate 25 mg tablet,extended release 24 hr 12.5 mg PO DAILY Blood pressure 10/12/20
montelukast 10 mg tablet 10 mg PO DAILY Lung/breathing issues 10/12/20
ezetimibe 10 mg tablet 10 mg PO DAILY High cholesterol 06/22/22
levalbuterol tartrate 45 mcg/actuation aerosol inhaler 2 puff inhalation R Q4HPRN PRN sob/wheezing 06/22/22
Lactobac no.2-Bifidobac no.1-S. thermo 112.5 billion cell capsule (Visbiome) 1 cap PO HS 05/06/24
budesonide 0.5 mg/2 mL suspension for nebulization 0.5 mg inhalation R BID 05/06/24
doxepin 3 mg tablet 3 mg PO HS 05/06/24
ibandronate 150 mg tablet 150 mg PO QMONTH 05/06/24
roflumilast 500 mcg tablet 500 mcg PO DAILY 05/06/24
therapeutic multivitamin 1 tab PO HS 05/06/24
umeclidinium 62.5 mcg-vilanterol 25 mcg/actuation powdr for inhalation (Anoro Ellipta) 1 inh inhalation R DAILY@1200 05/06/24
diltiazem HCl 120 mg capsule,extended release 24 hr 120 mg PO DAILY #30 caps 05/08/24
albuterol sulfate 1.25 mg/3 mL solution for nebulization 1.25 mg (3 mL) inhalation QID PRN shortness of breath or wheezing #90 mL 04/05/25
prednisone 10 mg tablet See Rx Instructions .Route .COMPLEX #45 tabs 04/05/25
Review of Systems
-
A 12 point ROS was completed and negative except as noted: Yes
Physical Exam
Vital Signs
Vital Signs
Temp Pulse Resp BP Pulse Ox
97.4 F 85 13 134/78 98
04/27/25 23:16 04/28/25 00:45 04/28/25 00:45 04/28/25 01:08 04/28/25 01:08
Physical Exam
General: No Apparent Distress, Appears Chronically Ill, Cachectic and Other
HEENT: NormoCephalic, Anicteric, Moist mucous membranes and Atraumatic; No Nose Appears Normal (Left nare packed)
Respiratory: Non Labored Respirations and Decreased Breath Sounds; No Wheezes
Cardiac: S1/S2 and Regular Rhythm
GI: Soft, Non Tender, Non Distended and Normal Bowel Sounds
Musculoskeletal: No Clubbing and No Cyanosis
Skin: Warm and Dry
Neuro: Awake and AO x 3
Psych: Other (Strange/bizarre affect)
Laboratory Results
-
04/28/25 00:10
04/28/25 00:11
Laboratory Results
PT 14.1 Sec (11.4-14.6) 04/28/25 00:11
INR 1.08 04/28/25 00:11
APTT 28.5 Sec (23.4-35.0) 04/28/25 00:11
Total Bilirubin 0.3 mg/dl (0.2-1.3) 04/28/25 00:11
AST 27 U/L (14-36) 04/28/25 00:11
ALT 23 U/L (0-35) 04/28/25 00:11
Alkaline Phosphatase 95 U/L (38-126) 04/28/25 00:11
Impression/Plan
-
Acute on chronic respiraforty failure now requiring 4l when she uses 3l at home due to left nare tamponade secondary to epistaxis
I do not believe she is in copd exacterbation, no wheezing on exam. She states sob began after left nare started bleeding
Wean o2 as tolerated
ENT consult
Discussed use with humidified air, admits to having bottle of distilled water at home for humdified air but does not use it, also discussed using a humudifier
COPD
Continue home breathing therapies along with daliresp
No wheezing on exam thereofre, hold off on steroids
Goal spo2 >88-92%
CAD s/p PCI
Dapt statin BB
HFrecEF, compensated
Daily weigths/Heaven's
Htn
Continue antihypertensives
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
Encourage po intake
Ensure TID wm
Nuturtion consult
Med rec needs to be completed. She states these are her current meds but she cannot tell them to me nor does she have a list with her.
[2025-04-28] MEDS: VENTOLIN NEBULES 3 MG INH ×3 (05:10→19:48)
[2025-04-28] MEDS: SPIRIVA RESPIMAT 2.5 MCG 2 PUFF INH (07:37)
[2025-04-28] MEDS: PULMICORT 0.5 MG INH ×2 (07:38→19:48)
[2025-04-28] MEDS: STRIVERDI RESPIMAT 2 PUFF INH (07:38)
[2025-04-28 07:40] LABS: Hematocrit 33.9 % (37.0-47.0); Hemoglobin 10.9 g/dL (12.0-16.0); Mean Corp Hgb Conc. 32.2 g/dL (33.0-37.0); Mean Corpuscular Volume 92.4 fL (81.0-99.0); Platelet Count 230 10^3/uL (130-400); Red Cell Dist. Width 13.3 % (11.5-14.5)
[2025-04-28 08:05] LABS: Blood Urea Nitrogen 25 mg/dl (7-17); Calcium 8.9 mg/dl (8.4-10.2); Carbon Dioxide 27 mmol/L (22-30); Chloride 103 mmol/L (98-107); Estimated Creatinine Clearance 64 ml/min; Glucose 153 mg/dl (70-99); Potassium 4.5 mmol/L (3.5-5.1); Sodium 137 mmol/L (135-145); eGFR > 60.00
[2025-04-28] MEDS: TOPROL XL 12.5 MG PO ×2 (08:26→10:00)
[2025-04-28] MEDS: CARDIZEM CD 120 MG PO ×2 (08:26→20:10)
[2025-04-28] MEDS: SINGULAIR 10 MG PO (08:26)
[2025-04-28] MEDS: DELTASONE PO (08:27)
[2025-04-28] MEDS: OSCAL CAL 500 500 MG PO ×2 (08:27→20:10)
[2025-04-28] MEDS: ZETIA 10 MG PO (08:27)
--- NOTE | 2025-04-28 09:38 | W.PN.HOSP.TC ---
Addendum entered and electronically signed by Hayden Quintero DO 04/28/25 14:06:
Nursing informed me that patient feels anxious about going home. Feels that she is short of breath with exertion.
Not appreciably hypoxic on exertion using oxygen therapy.
I do not feel that she has a COPD exacerbation. Suspect the nasal packing and nasal congestion is contributing to her difficulty with breathing. Bevier nasal spray prescribed.
Hopefully we can discharge tomorrow.
Addendum entered and electronically signed by Hayden Quintero DO 04/28/25 11:45:
Okay to discharge, evaluated by ENT. To be seen in the ENT office in 2 days.
Prescription for cefdinir sent to her pharmacy.
Humidified oxygen on discharge.
Permanently stop clopidogrel, discussed with patient.
Original Note:
Today's Communication/Plan
-
Stop clopidogrel
ENT consult
Assessment / Plan
Assessment / Plan
Gen-AAOx3, NAD, cachectic
HEENT-NC, AT, anicteric, clear oral mm
Neck-supple
CV-reg, no M, +S1/S2
Lungs-decreased breath sounds bilaterally
Abd-soft, NT, ND
Ext-no edema
Musculoskeletal-no cyanosis, clubbing
Skin-warm and dry
Neuro-grossly non-focal
Psych-calm, cooperative
Severe left-sided epistaxis -packing remains in place. Hemodynamically stable. No further bleeding. Awaiting ENT input.
Etiology likely due to severe dryness of nasal mucosa from chronic oxygen therapy. Was not using humidifier as prescribed at home.
Acute anemia -hemoglobin 11.7 on admission, 10.9 today. Presumably due to acute blood loss anemia from epistaxis. Monitor for now.
COPD without exacerbation -no wheezing on exam. Oxygen dependent, chronically on 3 L at home.
Recently completed steroid taper and plan to continue chronic daily prednisone 5 mg daily as prescribed by her data typist, Dr. Green.
CAD -stable. Has been on dual antiplatelet therapy for years. Last stent was 2016 according to patient.
Spoke with Dr. Nieves, her director electrical engineering. Moving forward can discontinue further Plavix use, continue aspirin. Discussed with patient.
Essential hypertension -stable.
Hyperlipidemia -atorvastatin, Zetia.
Underweight -rule out severe protein calorie malnutrition, pulmonary cachexia. Nutrition is consulted.
Full code
Dispo -possible discharge later today if cleared by ENT. Outpatient follow-up.
Anticipated Discharge: Today
Subjective/Interval History
-
Date of Service: April 28, 2025
Patient seen and examined. No new complaints.
Objective Data
-
Labs:
Laboratory Results
04/28/25 04/28/25 04/28/25
00:10 00:11 07:15
WBC 10.5 10.5
Hgb 11.7 L 10.9 L
Hct 36.0 L 33.9 L
Plt Count 248 230
PT 14.1
INR 1.08
APTT 28.5
Sodium 136 137
Potassium 3.9 4.5
Chloride 102 103
Carbon Dioxide 28 27
BUN 24 H 25 H
Creatinine 0.7 0.6
Glucose 165 H 153 H
Calcium 8.8 8.9
Total Bilirubin 0.3
AST 27
ALT 23
Alkaline Phosphatase 95
Vital Signs:
Vital Signs
Temp Pulse Resp BP Pulse Ox
98.2 F 81 20 127/76 95
04/28/25 07:00 04/28/25 07:42 04/28/25 07:42 04/28/25 07:00 04/28/25 07:42
I&O
04/27/25 04/28/25 04/29/25
06:59 06:59 06:59
Intake Total 480 / 480
Balance 480 / 480
Review of Systems
-
History Source: Patient
All other systems: Reviewed and negative
[2025-04-28] MEDS: DELTASONE 5 MG PO (10:00)
--- NOTE | 2025-04-28 11:13 | W.CON.OTO ---
Otolaryngology Consult
Consult
Date/Time Consultation Requested: 04/28/2025 0756
Date/Time Consultation Performed: 04/28/2025 1050
Requesting Provider: Dr. Blake
Performing Provider: Dr. Wilkins
Reason for Consultation: Epistaxis
Chief Complaint
Epistaxis
History of Present Illness
Cydney is a 70-year-old woman with a history of COPD on 3 to 4 L of home oxygen via nasal cannula and CAD on Plavix who presented to the [facility] emergency department on 04/27/2025 after acute onset left severe epistaxis that did not resolve with manual
pressure and tamponade. Her nosebleeding was primarily through the nose and lasted approximately 4 to 5 hours before coming to the emergency department. She has no history of recurrent epistaxis. No right-sided symptoms. She felt short of breath
as the nosebleed continued which she thinks was due to stress and worry. She was treated in the emergency department with a left merocel nasal packing with Achieved hemostasis. Her hemoglobin on arrival was 11.7 and had dropped to 10.9 upon recheck
on 04/28/2025. Her Plavix has been held after her medical team conferred with cardiology.
At the time of evaluation she is feeling better with no further epistaxis. She shares with me that she follows with our practice in the medical office building [place] so is familiar with where to go for continued care.
Medical History
Past Medical History: CAD and COPD
Past Surgical History: None
Patient Allergies:
Allergies
Allergy/AdvReac Type Severity Reaction Status Date / Time
No Known Allergies Allergy Verified 04/05/25 12:42
Home Medications / Current Medications:
�Medication �Instructions �Recorded
diltiazem HCl 120 mg tablet 120 mg BID 04/28/25
(Cardizem)
Physical Exam
Vitals / Labs:
Vital Signs
Temp 98.2 F 04/28/25 07:00
Temp route: Oral 04/28/25 07:00
Pulse 81 04/28/25 07:42
Resp Rate 20 04/28/25 07:42
Blood pressure 127/76 04/28/25 07:00
Blood pressure extremity used: Left upper arm 04/28/25 07:00
Position: Lying 04/28/25 07:00
MAP (cuff-Mckayla Monitor) 94 04/28/25 03:00
SaO2 95 04/28/25 07:42
Nasal Cannula flow liters per minute 4 04/28/25 07:42
Oxygen Mode of Delivery Room air 04/27/25 23:58
Flow liters per minute # 4 04/27/25 23:16
Acceptable pain level during hospitalization? 0 04/27/25 23:16
Can the patient verbally communicate their pain? Yes 04/28/25 03:55
Actual Weight 45 kg 04/28/25 00:31
Body Mass Index (BMI) 16.0 04/28/25 00:31
Lab Results
04/28/25 07:15
04/28/25 07:15
PT 14.1 Sec (11.4-14.6) 04/28/25 00:11
INR 1.08 04/28/25 00:11
Exam:
Otolaryngology specialty specific physical exam: Nasal cannula in place on 4 L oxygen. Left merocel nasal packing in place with some dried blood around the edges. No active bleeding or clots visualized. No bleeding from oral cavity.
Assessment / Plan
Cydney is a 70-year-old woman with COPD on 3-4 L home O2 and CAD on plavix who was admitted for management of acute severe left epistaxis requiring nasal packing (merocel).
Since admission she has had no further epistaxis. Her hemoglobin dropped from 11.7-10.9. Platelets grossly stable at 230 down from 248 and no change in her white blood cell count. She is feeling well and feels like she would be safe going home
with close outpatient follow-up.
Recommendations:
- Antibiotics while non-dissolvable packing in place to prophylax against post-obstructive sinusitis. Rec for cefdinir 300mg PO BID x5 day and will plan to d/c on outpatient basis once packing removed
- Nasal saline spray has been to 2 sprays each nostril, even with packing in place, 3-4 times daily
- Aquaphor or vaseline inside nostril edge BID
- Humidification for supplemental O2 as well as near nightstand while sleeping, trimming nasal cannula prongs so they are less traumatic inside nostril
- Defer to cardiology and medical services for Plavix hold, but holding it certainly gives the nasal mucosa a better chance to heal
- We will follow-up with her in the office on 04/30 for likely packing removal and continued care if no further epistaxis
- We discussed return precautions for management of any acute rebleed including applying Afrin to affected nasal cavities and pinching the nostrils closed and leaning forward
Please contact with questions
Data Reviewed
Lab Data: Labs Reviewed by me ( Hemoglobin 10.9, slightly down from 11.7 on admission. Platelets 230 down from 248 on admission. WBC 10.5, stable suggesting against acute infection.)
--- NOTE | 2025-04-28 11:42 | W.DS.TRANS ---
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
-
Discharge Instructions:
Discharge Diagnosis/Procedures Left sided nose bleed
Diet Regular
Activity As tolerated
Driving Restrictions As prior to admission
Bathing Restrictions None
Instructions:
Stand-Alone Forms:
Changes to Home Medications: Yes
Discharge Medications:
DC Medications w/original date entered in [employer]
calcium carbonate 600 mg PO BID Supplement 04/25/17
aspirin 81 mg tablet,delayed release 81 mg PO HS Blood clot prevention/tx 10/12/20
atorvastatin 40 mg tablet 40 mg PO HS High cholesterol 10/12/20
metoprolol succinate 25 mg tablet,extended release 24 hr 25 mg PO DAILY Blood pressure 10/12/20
montelukast 10 mg tablet 10 mg PO DAILY Lung/breathing issues 10/12/20
ezetimibe 10 mg tablet 10 mg PO DAILY High cholesterol 06/22/22
levalbuterol tartrate 45 mcg/actuation aerosol inhaler 2 puff inhalation R Q4HPRN PRN sob/wheezing 06/22/22
Lactobac no.2-Bifidobac no.1-S. thermo 112.5 billion cell capsule (Visbiome) 1 cap PO HS 05/06/24
budesonide 0.5 mg/2 mL suspension for nebulization 0.5 mg inhalation R BID PRN SOB 05/06/24
doxepin 3 mg tablet 3 mg PO HS 05/06/24
ibandronate 150 mg tablet 150 mg PO QMONTH 05/06/24
therapeutic multivitamin 1 tab PO HS 05/06/24
umeclidinium 62.5 mcg-vilanterol 25 mcg/actuation powdr for inhalation (Anoro Ellipta) 1 inh inhalation R DAILY@1200 05/06/24
albuterol sulfate 1.25 mg/3 mL solution for nebulization 1.25 mg (3 mL) inhalation QID PRN shortness of breath or wheezing #90 mL 04/05/25
cefdinir 300 mg capsule 300 mg PO BID #10 caps 04/28/25
diltiazem HCl 120 mg tablet (Cardizem) 120 mg BID 04/28/25
prednisone 5 mg tablet 5 mg PO DAILY #0 tabs 04/28/25
roflumilast 500 mcg tablet 500 mcg PO DAILY #0 tabs 04/28/25
Home Medication Changes
STOP CLOPIDOGREL.
Pending Results: No
--- NOTE | 2025-04-28 12:43 | CM ---
Addendum entered by Pankaj Goodwin 04/29/25 11:52:
Discharge home today, no needs
Original Note:
Patient will discharge home today. Met w/ patient bedside, initial assessment completed. Patient is a 70 female history of COPD on 3 L nasal cannula, CAD, hyperlipidemia, MD, who presented with difficulty breathing.
Patient resides w/ spouse in a single story home, 2 steps to enter. Independent in all areas. Has 24/7 O2 at home (3L baseline) through [facility]. Denies SNF/HC hx.
Address, point of contact and insurance verified
PCP: Keily Naidu
Pharmacy: [facility]
Patient admitted under obs services. BENNETT form verbally reviewed, copy provided, copy on chart
Plan: Home, no needs. Spouse will transport
[2025-04-28] MEDS: OCEAN, SALINE MIST 1 SPRAYS NASAL (17:49)
[2025-04-28] MEDS: OMNICEF 300 MG PO (20:10)
[2025-04-28] MEDS: LIPITOR 40 MG PO (21:08)
[2025-04-28] MEDS: OCEAN, SALINE MIST 2 SPRAYS NASAL (21:08)
[2025-04-28] MEDS: ASPIR LOW (ENTERIC COATED) 81 MG PO (21:08)
[2025-04-28] MEDS: THERAGRAN 1 TABLET PO (21:08)
[2025-04-28] MEDS: MELATONIN 5 MG PO (22:41)
[2025-04-29 07:00] VITALS: BP 128/63
[2025-04-29] MEDS: SPIRIVA RESPIMAT 2.5 MCG 2 PUFF INH (08:20)
[2025-04-29] MEDS: PULMICORT 0.5 MG INH (08:21)
[2025-04-29] MEDS: STRIVERDI RESPIMAT 2 PUFF INH (08:21)
--- NOTE | 2025-04-29 08:28 | W.PN.HOSP.TC ---
Addendum entered and electronically signed by Hayden Quintero DO 04/29/25 11:46:
Spoke with Dr. Underwood, okay with discharge on prednisone taper. Outpatient pulmonary follow-up. Follow-up with ENT tomorrow.
Original Note:
Today's Communication/Plan
-
Pulmonary consult
Assessment / Plan
Assessment / Plan
Gen-AAOx3, tachypneic cachectic
HEENT-NC, AT, anicteric, clear oral mm
Neck-supple
CV-reg, no M, +S1/S2
Lungs-decreased breath sounds bilaterally
Abd-soft, NT, ND
Ext-no edema
Musculoskeletal-no cyanosis, clubbing
Skin-warm and dry
Neuro-grossly non-focal
Psych-calm, cooperative
Acute on chronic hypoxic respiratory failure -suspect primary trigger is nosebleed induced breathing difficulty given need for nasal packing and nasal congestion. Continue [place] nasal spray. Patient feels very anxious about going home due to her
dyspnea on exertion. I will ask for pulmonary input.
While pulmonary embolism remains a possibility, I clinically doubt that is the case currently and I suspect her severe COPD is contributing in addition to acute issue with nosebleed and need for nasal packing, nasal congestion.
Severe left-sided epistaxis -packing remains in place. Hemodynamically stable. No further bleeding. ENT input noted. Empiric cefdinir for sinusitis prophylaxis.
Etiology likely due to severe dryness of nasal mucosa from chronic oxygen therapy. Was not using humidifier as prescribed at home.
Acute anemia -hemoglobin 11.7 on admission, 10.9 today. Presumably due to acute blood loss anemia from epistaxis. Monitor for now.
COPD without exacerbation -no wheezing on exam. Oxygen dependent, chronically on 3 L at home.
Recently completed steroid taper and plan to continue chronic daily prednisone 5 mg daily as prescribed by her anodic operator, Dr. Green.
CAD -stable. Has been on dual antiplatelet therapy for years. Last stent was 2015 according to patient.
Spoke with Dr. Nieves, her eddy current inspector. Moving forward can discontinue further Plavix use, continue aspirin. Discussed with patient.
Essential hypertension -stable.
Hyperlipidemia -atorvastatin, Zetia.
Underweight -rule out severe protein calorie malnutrition, pulmonary cachexia. Nutrition is consulted.
Full code
Dispo -await pulmonary input, possible discharge later today. She has an appointment to follow-up with ENT tomorrow 04/30.
Anticipated Discharge: Today
Subjective/Interval History
-
Date of Service: April 29, 2025
Patient seen and examined. Complaining of dyspnea on exertion.
Objective Data
-
Vital Signs:
Vital Signs
Temp Pulse Resp BP Pulse Ox
98.3 F 103 16 120/78 96
04/28/25 23:07 04/28/25 23:07 04/28/25 23:07 04/28/25 23:07 04/28/25 23:07
I&O
04/28/25 04/29/25 04/30/25
06:59 06:59 06:59
Intake Total 480 / 480 1200 / 1200
Balance 480 / 480 1200 / 1200
Review of Systems
-
History Source: Patient
All other systems: Reviewed and negative
[2025-04-29 08:41] VITALS: BP 128/63
[2025-04-29] MEDS: ZETIA 10 MG PO (10:10)
[2025-04-29] MEDS: VISBIOME 1 CAP PO (10:10)
[2025-04-29] MEDS: CARDIZEM CD 120 MG PO (10:10)
[2025-04-29] MEDS: OMNICEF 300 MG PO (10:10)
[2025-04-29] MEDS: TOPROL XL 25 MG PO (10:10)
[2025-04-29] MEDS: DELTASONE 5 MG PO (10:10)
[2025-04-29] MEDS: OSCAL CAL 500 500 MG PO (10:10)
[2025-04-29] MEDS: SINGULAIR 10 MG PO (10:11)
[2025-04-29] MEDS: OCEAN, SALINE MIST 1 SPRAYS NASAL (10:11)
--- NOTE | 2025-04-29 10:39 | CON.PUL ---
Consultation
Consultation Request
Date/Time Consultation Requested: 04/29/2025-10:30 AM
Date/Time Consultation Performed: 04/29/2025-11 AM
Requesting Provider: Hospitalist
Performing Provider: Dr. Underwood
Reason for Consultation: Shortness of breath
Medical History
-
Chief Complaint: Shortness of breath
History of Present Illness:
70-year-old former smoking female with underlying COPD on 3 L of nasal cannula oxygen around the clock, CAD, hyperlipidemia who presented with increasing shortness of breath as well as epistaxis requiring ENT evaluation and intervention-pulmonary
consulted for ongoing shortness of breath 04/29/25. Patient states that she continues to have significant shortness breath with minimal exertion. She feels like his own help her. She denies chest chest tightness, chest congestion, productive
cough or hemoptysis. She did have left nares epistaxis requiring ENT intervention. Balloon will be removed in the office tomorrow. She denies any abdominal pain, reflux,
Or focal weakness.
Past Medical History
Past Medical History: None ( COPD on chronic 3 L oxygen. CAD/Stent 2016. Hyperlipidemia. Epistaxis. Psoriasis. Osteoporosis. Bilateral tubal ligation.)
Social History
Tobacco: Former Smoker (, quit 11/25/15)
Alcohol: None
Drug: None
Living: With Family
Occupational Exposures: No known asbestos exposure
Environmental Exposures: No known tuberculosis exposure
Family History
Family History: Reviewed & Not Pertinent ( father-COPD)
Allergies / Home Medications
Allergies
Allergy/AdvReac Type Severity Reaction Status Date / Time
No Known Allergies Allergy Verified 04/05/25 12:42
Home Medications
�Medication �Instructions �Recorded �Confirmed �Last Taken �Type
calcium carbonate 600 mg PO BID Supplement 04/25/17 04/28/25 04/28/25 08:36 History
aspirin 81 mg tablet,delayed 81 mg PO HS Blood clot 10/12/20 04/28/25 04/26/25 18:00 History
release prevention/tx
atorvastatin 40 mg tablet 40 mg PO HS High cholesterol 10/12/20 04/28/25 04/26/25 18:00 History
metoprolol succinate 25 mg 25 mg PO DAILY Blood pressure 10/12/20 04/28/25 04/27/25 08:00 History
tablet,extended release 24 hr
montelukast 10 mg tablet 10 mg PO DAILY Lung/breathing 10/12/20 04/28/25 04/27/25 08:00 History
issues
ezetimibe 10 mg tablet 10 mg PO DAILY High cholesterol 06/22/22 04/28/25 04/28/25 08:39 History
levalbuterol tartrate 45 2 puff inhalation R Q4HPRN PRN 06/22/22 04/28/25 04/27/25 12:00 History
mcg/actuation aerosol inhaler sob/wheezing
Lactobac no.2-Bifidobac no.1-S. 1 cap PO DAILY 05/06/24 04/28/25 04/26/25 18:00 History
thermo 112.5 billion cell capsule
(Visbiome)
budesonide 0.5 mg/2 mL suspension 0.5 mg inhalation R BID PRN SOB 05/06/24 04/28/25 04/19/25 08:00 History
for nebulization
doxepin 3 mg tablet 3 mg PO HS 05/06/24 04/28/25 04/26/25 22:00 History
ibandronate 150 mg tablet 150 mg PO QMONTH 05/06/24 04/28/25 04/18/25 History
therapeutic multivitamin 1 tab PO HS 05/06/24 04/28/25 04/27/25 08:00 History
umeclidinium 62.5 mcg-vilanterol 1 inh inhalation R DAILY@1200 05/06/24 04/28/25 04/26/25 08:00 History
25 mcg/actuation powdr for
inhalation (Anoro Ellipta)
albuterol sulfate 1.25 mg/3 mL 1.25 mg (3 mL) inhalation QID PRN 11/04/28/25 04/27/25 08:00 Rx
solution for nebulization shortness of breath or wheezing
#90 mL
cefdinir 300 mg capsule 300 mg PO BID #10 caps 04/28/25 Unknown Rx
diltiazem HCl 120 mg tablet 120 mg BID 04/28/25 04/28/25 04/28/25 08:39 History
(Cardizem)
prednisone 5 mg tablet 5 mg PO DAILY #0 tabs 04/28/25 Unknown Rx
Review of Systems
-
Unable to Obtain full review of systems at this time due to: Other (Per HPI)
Vitals / Labs / Diagnostic Testing
Vital Signs
Temp Pulse Resp BP Pulse Ox
97.1 F 111 20 128/63 97
04/29/25 07:00 04/29/25 10:10 04/29/25 08:39 04/29/25 10:10 04/29/25 08:39
Lab Data
04/28/25 07:15
04/28/25 07:15
Diagnostic Testing:
Physical Exam
-
Exam:
Well-nourished and well-developed in no apparent distress
HEENT-atraumatic, normocephalic, temporal wasting
Neck-supple, no JVD, no bruit
Heart-regular rate and rhythm-no murmurs, rubs or gallops
Chest with diminished breath sounds, prolonged expiratory time, hyperinflation, forced end expiratory wheezes
Back-no tenderness
Abdomen-soft, nontender, nondistended, no hepatosplenomegaly
Extremities-no cyanosis, clubbing, edema and good peripheral pulses
Integument-intact, no rashes, lesions or ecchymosis
Neurology-alert and oriented, nonfocal motor and sensory exam
Assessment
-
70-year-old former smoking female with underlying COPD on 3 L of nasal cannula oxygen around the clock, CAD, hyperlipidemia who presented with increasing shortness of breath as well as epistaxis requiring ENT evaluation and intervention-pulmonary
consulted for ongoing shortness of breath 04/29/25.
COPD-gold stage IV with mild acute exacerbation.
Epistaxis status post ENT intervention left nares.
Mild normocytic anemia-hemoglobin 10.9.
Hyperglycemia
Conditions present prior to admission:
COPD on chronic 3 L oxygen-followed by Dr. Green -maintained on Trelegy or Breztri or Anoro/budesonide, albuterol, prednisone 5 mg daily and Dupixent-intermittently sees Dr. Wiseman at [facility]-not [place] valve candidate and has not followed up with .
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
Peripheral eosinophilia
CAD/Stent 2016.
Hyperlipidemia.
Epistaxis.
Psoriasis.
Osteoporosis.
Bilateral tubal ligation.
Plan
History reviewed and pertinent pulmonary data summarized below after reviewing outpatient office visits including PFT, 6 minute walk test, radiographs, CT chest and echocardiogram-summarized
Patient with probable mild COPD flare. On top of epistaxis and ENT intervention.
Supplemental oxygen-chronically on 3 L
At time of discharge. Resume outpatient inhalers summarized above.
Mucolytic centimeters-currently without significant chest congestion.
Prednisone 40 mg tapered down to 5 mg daily until seen in the pulmonary office.
ENT evaluation tomorrow for possible balloon removal.
DVT prophylaxis.
Nutrition
Early mobilization/pulmonary rehabilitation
Reviewed with primary service
The patient last saw Dr. Green 02/26/25 and has an appointment 06/09/25 11:45 AM
Diagnostic data:
Chest x-ray 04/28/25-NAD, stable chronic COPD changes
CT chest 05/06/24: negative PE.� Calcified plaque, carotid, subclavian, coronary arteries.� Severe emphysema.� Chronic pleural thickening.� Hepatic cyst 1.6 cm, 9.4 mm adrenal nodule, likely benign adenoma
[place] 02/26/25: FVC 1.72/51%, FEV1 0.53/21%, ratio 31
PFT 05/29/23 ([place]):FVC 2.22/77%, FEV1 0.82/36%, ratio 37. DLCO 17%, TLC 126%, RV 208%.
6MWT 05/29/24: Total distance 75 feet.� Patient walk 1 minute, heart rate at rest was in 1:30, increased to 156.� On room air she was 90%.� With rest, heart rate went briefly up to the 170s at which time I was present and walk test was discontinued.�
With this patient denies any chest pain, lightheadedness.� She admitted to palpitations
Echocardiogram 04/2024. Normal biventricular function, PA systolic 35
Data Reviewed
-
PFT: Report reviewed by me
EKG: Report reviewed by me
Radiology: Image personally visualized and interpreted and Report reviewed by me
CT Scan: Image personally visualized and interpreted and Report reviewed by me
Medical Tests (Nuc Med, Echo etc): Report reviewed by me
Labs: Labs reviewed by me
Old Records: Reviewed
Total Time Spent with Patient (in minutes): 55
--- NOTE | 2025-04-29 11:49 | W.DS.TRANS ---
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
-
Discharge Instructions:
Discharge Diagnosis/Procedures Left sided nose bleed
Diet Regular
Activity As tolerated
Driving Restrictions As prior to admission
Bathing Restrictions None
Instructions:
Stand-Alone Forms:
Changes to Home Medications: No
Discharge Medications:
DC Medications w/original date entered in [employer]
calcium carbonate 600 mg PO BID Supplement 04/25/17
aspirin 81 mg tablet,delayed release 81 mg PO HS Blood clot prevention/tx 10/12/20
atorvastatin 40 mg tablet 40 mg PO HS High cholesterol 10/12/20
metoprolol succinate 25 mg tablet,extended release 24 hr 25 mg PO DAILY Blood pressure 10/12/20
montelukast 10 mg tablet 10 mg PO DAILY Lung/breathing issues 10/12/20
ezetimibe 10 mg tablet 10 mg PO DAILY High cholesterol 06/22/22
levalbuterol tartrate 45 mcg/actuation aerosol inhaler 2 puff inhalation R Q4HPRN PRN sob/wheezing 06/22/22
Lactobac no.2-Bifidobac no.1-S. thermo 112.5 billion cell capsule (Visbiome) 1 cap PO DAILY 05/06/24
budesonide 0.5 mg/2 mL suspension for nebulization 0.5 mg inhalation R BID PRN SOB 05/06/24
doxepin 3 mg tablet 3 mg PO HS 05/06/24
ibandronate 150 mg tablet 150 mg PO QMONTH 05/06/24
therapeutic multivitamin 1 tab PO HS 05/06/24
umeclidinium 62.5 mcg-vilanterol 25 mcg/actuation powdr for inhalation (Anoro Ellipta) 1 inh inhalation R DAILY@1200 05/06/24
albuterol sulfate 1.25 mg/3 mL solution for nebulization 1.25 mg (3 mL) inhalation QID PRN shortness of breath or wheezing #90 mL 04/05/25
cefdinir 300 mg capsule 300 mg PO BID #10 caps 04/28/25
diltiazem HCl 120 mg tablet (Cardizem) 120 mg BID 04/28/25
prednisone 5 mg tablet 5 mg PO DAILY #0 tabs 04/28/25
prednisone 10 mg tablet 10 mg PO DAILY #30 tabs 04/29/25
Home Medication Changes
Pending Results: No
[2025-04-29 12:56] VITALS: BP 130/86
== END 2025-04-29 13:20 | disposition home or self-care (01) ==
LOC: 4 EAST ACU 02:26
PROVIDERS: ADMITTING PHYSICIAN Hospitalist; ATTENDING PHYSICIAN Hospitalist; CONSULT PHYSICIAN Internal Medicine Critical Care Medicine; CONSULT PHYSICIAN Student in an Organized Health Care Education/Training Program; EMERGENCY PHYSICIAN Student in an Organized Health Care Education/Training Program; FAMILY PHYSICIAN Family Medicine
DX: R04.0 Epistaxis (principal); D64.9 Anemia, unspecified; J44.9 Chronic obstructive pulmonary disease, unspecified; I50.30 Unspecified diastolic (congestive) heart failure; I11.0 Hypertensive heart disease with heart failure; I25.10 Atherosclerotic heart disease of native coronary artery without angina pectoris; J96.21 Acute and chronic respiratory failure with hypoxia; L40.9 Psoriasis, unspecified; M81.0 Age-related osteoporosis without current pathological fracture; E78.5 Hyperlipidemia, unspecified; R63.6 Underweight; R64 Cachexia; Z87.891 Personal history of nicotine dependence; Z99.81 Dependence on supplemental oxygen; Z79.899 Other long term (current) drug therapy; Z68.1 Body mass index [BMI] 19.9 or less, adult; Z79.02 Long term (current) use of antithrombotics/antiplatelets; Z95.5 Presence of coronary angioplasty implant and graft
CPT/HCPCS: 30901; 71046; 80048; 80053; 85025; 85027; 85610; 85730; 94640; 96374; 99285; G0378